=== PATIENT | male | born 1945 | race Caucasian/White ===

== ENCOUNTER 2016-07-11 16:49 | Emergency (ER) | payer MEDICARE ==
[~2016-07-11] VITALS: Ht 172.7 cm; Wt 76.0 kg
[~2016-07-11 16:49] MED LIST: ASPI81TA82 PO; ATEN-102 PO; ATOR10 PO; AZAT50 PO; D31000CA PO; FERR324T4 PO; FOLI400T30 PO; LEVO.075 PO; LISI-357 PO; ONDA1TAB16 PO; PERC5TAB12 PO; PROB500 PO; PROT40TA PO; PYRI60 PO; VIAG100T PO; VITA100020 IM
[2016-07-11 16:51] VITALS: BP 178/81; PULSE 66; RESP 16; TEMP 97.7; O2SAT 95
--- NOTE | 2016-07-11 17:12 | PD ---
HPI Chief Complaint: Abdominal Pain Time Seen by Provider: 17:11 Travel History International Travel<30 days: No Contact w/Intl Traveler<30days: No Traveled to known affect area: No History of Present Illness HPI 70-year-old male with a past medical history of diabetes, myasthenia gravis, CVA , CAD post stents presents to the emergency department for evaluation of diffuse abdominal pain that started around 2 PM this afternoon. He also reports 2 episodes of vomiting. He states that he has a history of chronic abdominal pain that comes and goes. Patient reports the last episode was several weeks ago. He has had colonoscopy and EGD. He currently sees Dr. Sears. He states they have not been able to figure out his source of abdominal pain. He also reports a history of diverticulitis. He denies any diarrhea or constipation. He denies any blood in his stool. Denies any fevers or chills. No chest pain or shortness of breath. Patient does report a history of hernia repair with mesh and appendectomy. PFSH Past Medical History Asthma: No Autoimmune Disease: No Anxiety: No Depression: No Heart Rhythm Problems: No Cancer: No Cardiac Catheterization: Yes Cardiovascular Problems: Yes (3 STENTS) High Cholesterol: Yes Chest Pain: Yes (ischemic heart disease) Congestive Heart Failure: No COPD: No Cerebrovascular Accident: Yes (IN 2010 some left side weakness with acute stroke) Diabetes: Yes Diminished Hearing: No Diverticulitis: Yes Endocrine: Yes (MYASTHENIA GRAVIS) Gastrointestinal Disorders: Yes (reflux) GERD: Yes Gout: Yes Genitourinary: No Hepatitis: No Hiatal Hernia: No Hypertension: Yes Immune Disorder: No Kidney Stones: Yes Musculoskeletal: No Neurologic: Yes (myanthesis gravis in past) Psychiatric: No Reproductive: No Respiratory: No Immunizations Current: Yes Migraines: No Renal Failure: No Seizures: No Sleep Apnea: No Thyroid Disease: Yes Ulcer: No PNEUMOCCOCAL Vaccine (Year): 1 Past Surgical History Abdominal Surgery: Yes (hernia repair) Cardiac Surgery: Yes (stents x2) Coronary Stent: Yes (MAR 2012) Ear Surgery: No Endocrine Surgery: No Eye Surgery: Yes (bilat. cataracts with lens implants) Genitourinary Surgery: No Gynecologic Surgery: No Oral Surgery: No Pacemaker: No Thoracic Surgery: No Other Surgery: Yes ([facility] 08/2013) Social History Alcohol Use: No Tobacco Use: No Substance Use: No Allergies-Medications (Allergen,Severity, Reaction): Coded Allergies: Aggrenox (Verified Allergy, Severe, Hives, 07/11/16) Ondansetron (Verified Allergy, Severe, DIARRHEA, 07/11/16) Pravastatin (Verified Allergy, Severe, Anaphylaxis, 07/11/16) Ranitidine (Verified Allergy, Severe, DIZZINESS, 07/11/16) Metoclopramide (Verified Allergy, Intermediate, DISORIENTED; VERY NERVOUS , 07/11/16) Uncoded Allergies: DETROL (Allergy, Severe, ., 09/18/15) Reported Meds & Prescriptions Reported Meds & Active Scripts Active Reported [fdguard ] 1 Tab PO Q4-6H PRN Pyridostigmine (Pyridostigmine [place]) 60 Mg Tab 90 Mg PO HS Pyridostigmine (Pyridostigmine [place]) 60 Mg Tab 60 Mg PO BID Imuran (Azathioprine) 50 Mg Tab 50 Mg PO BID Hazardous agent: use appropriate precautions for handling and disposal. Probenecid 500 Mg Tab 500 Mg PO Q12HR Nexium 24 HR (Esomeprazole DR) 20 Mg Capdr 40 Mg PO DAILY Lisinopril 5 Mg Tab 5 Mg PO DAILY Synthroid (Levothyroxine Sodium) 75 Mcg Tab 75 Mcg PO DAILY Atenolol 50 Mg Tab 50 Mg PO DAILY Viagra (Sildenafil Citrate) 100 Mg Tab 100 Mg PO DAILY PRN Folic Acid 400 Mcg Tab 400 Mcg PO DAILY Aspirin 81 Mg Chew 81 Mg CHEW DAILY Vitamin D3 (Cholecalciferol) 1,000 Unit Tab 1,000 Units PO DAILY Vitamin B-12 (Cyanocobalamin) 1,000 Mcg Tab 1,000 Mcg PO DAILY Iron (Ferrous Sulfate) 325 Mg Tab 325 Mg PO DAILY Take Review of Systems Except as stated in HPI: all other systems reviewed are Neg Physical Exam Narrative GENERAL: Well-developed well-nourished male patient, afebrile. SKIN: Warm and dry. HEAD: Normocephalic. Atraumatic. EYES: No scleral icterus. No injection or drainage. NECK: Supple, trachea midline. No JVD or lymphadenopathy. CARDIOVASCULAR: Regular rate and rhythm without murmurs, gallops, or rubs. RESPIRATORY: Breath sounds equal bilaterally. No accessory muscle use. Lungs sounds clear to auscultation. GASTROINTESTINAL: Abdomen soft and nondistended. Patient has diffuse tenderness to palpation, worse in the periumbilical and left lower quadrants. MUSCULOSKELETAL: No cyanosis, or edema. BACK: Nontender without obvious deformity. No CVA tenderness. Data Data Last Documented VS Vital Signs Date Time Temp Pulse Resp B/P Pulse Ox O2 Delivery O2 Flow Rate FiO2 07/11/16 19:35 98.0 67 16 151/79 95 Orders Complete Blood Count With Diff (07/11/16 17:07) Comprehensive Metabolic Panel (07/11/16 17:07) Lipase (07/11/16 17:07) Urinalysis - C+S If Indicated (07/11/16 17:07) Iv Access Insert/Monitor (07/11/16 17:07) Ecg Monitoring (07/11/16 17:07) Oximetry (07/11/16 17:07) Sodium Chloride 0.9% Flush (Ns Flush) (07/11/16 17:15) Electrocardiogram (07/11/16 17:07) Promethazine Inj (Phenergan Inj) (07/11/16 17:15) Ct Abd/Pel W Iv Contrast(Rout) (07/11/16 ) Morphine Inj (Morphine Inj) (07/11/16 17:15) Sodium Chlor 0.9% 1000 Ml Inj (Ns 1000 M (07/11/16 17:30) Iohexol 350 Inj (Omnipaque 350 Inj) (07/11/16 18:42) Labs Laboratory Tests Test 07/11/16 17:15 White Blood Count 10.9 TH/MM3 Red Blood Count 4.91 MIL/MM3 Hemoglobin 15.6 GM/DL Hematocrit 45.4 % Mean Corpuscular Volume 92.6 FL Mean Corpuscular Hemoglobin 31.9 PG Mean Corpuscular Hemoglobin 34.5 % Concent Red Cell Distribution Width 13.3 % Platelet Count 202 TH/MM3 Mean Platelet Volume 7.8 FL Neutrophils (%) (Auto) 85.0 % Lymphocytes (%) (Auto) 6.3 % Monocytes (%) (Auto) 7.2 % Eosinophils (%) (Auto) 1.1 % Basophils (%) (Auto) 0.4 % Neutrophils # (Auto) 9.3 TH/MM3 Lymphocytes # (Auto) 0.7 TH/MM3 Monocytes # (Auto) 0.8 TH/MM3 Eosinophils # (Auto) 0.1 TH/MM3 Basophils # (Auto) 0.0 TH/MM3 CBC Comment DIFF FINAL Differential Comment Urine Color YELLOW Urine Turbidity CLEAR Urine pH 5.5 Urine Specific [place] 1.027 Urine Protein TRACE mg/dL Urine Glucose (UA) NEG mg/dL Urine Ketones NEG mg/dL Urine Occult Blood SMALL Urine Nitrite NEG Urine Bilirubin NEG Urine Urobilinogen LESS THAN 2.0 MG/DL Urine Leukocyte Esterase NEG Urine RBC 7 /hpf Urine WBC 2 /hpf Urine Squamous Epithelial <1 /hpf Cells Urine Mucus MOD /lpf Microscopic Urinalysis Comment CULT NOT INDICATED Sodium Level 139 MEQ/L Potassium Level 3.7 MEQ/L Chloride Level 105 MEQ/L Carbon Dioxide Level 26.5 MEQ/L Anion Gap 8 MEQ/L Blood Urea Nitrogen 18 MG/DL Creatinine 1.00 MG/DL Estimat Glomerular Filtration 74 ML/MIN Rate Random Glucose 101 MG/DL Calcium Level 8.5 MG/DL Total Bilirubin 1.1 MG/DL Aspartate Amino Transf 15 U/L (AST/SGOT) Alanine Aminotransferase 21 U/L (ALT/SGPT) Alkaline Phosphatase 61 U/L Total Protein 6.5 GM/DL Albumin 3.7 GM/DL Lipase 132 U/L [facility] Medical Decision Making Medical Screen Exam Complete: Yes Emergency Medical Condition: Yes Medical Record Reviewed: Yes Interpretation(s) Last Impressions Abdomen/Pelvis CT 07/11/16 0000 Signed Impressions: Service Date/Time: Wednesday, July 11, 2016 18:27 - CONCLUSION: 1. Abnormal mural thickening of the fourth portion of the duodenum and several proximal jejunal loops similar to September 2015 examination. Differential diagnosis again includes infectious or inflammatory etiology as well as infiltrative neoplastic process such as lymphoma. There is some associated trace free fluid in the left paracolic gutter. This would be better evaluated endoscopically. Lm Butler MD Differential Diagnosis Chronic abdominal pain versus diverticulitis versus UTI versus pancreatitis versus colitis Narrative Course 70-year-old male presents to the emergency department treatment which abdominal pain since 2 PM this afternoon. EKG is ordered and pending. CBC, CMP, lipase, UA are ordered and pending. CT the abdomen/pelvis with IV contrast is ordered and pending. Patient is given Phenergan 12.5 mg IM and morphine 4 mg IV for pain and nausea. EKG shows SR, HR 62, no acute ST changes. CBC shows no acute abnormalities. CMP shows no acute abnormality. Lipase is 132. UA shows no acute infection. CT abdomen/pelvis shows 1. Abnormal mural thickening of the fourth portion of the duodenum and several proximal jejunal loops similar to September 2015 examination. Differential diagnosis again includes infectious or inflammatory etiology as well as infiltrative neoplastic process such as lymphoma. There is some associated trace free fluid in the left paracolic gutter. This would be better evaluated endoscopically. Patient sees Dr. Sears and has had recent EGD/colonoscopy. This is chronic in nature. My attending physician, Dr. Dominguez, also evaluated patient and agrees on plan and disposition. The patient was discharged in stable condition with instructions, including return instructions and follow up instructions. Diagnosis Primary Impression: Abdominal pain Qualified Code: R10.84 - Generalized abdominal pain Referrals: Breanna Sears MD call for appointment Patient Instructions: Abdominal Pain (ED), General Instructions Additional Instructions: Take Lortab as directed as needed for pain. Caution this can make you drowsy so do not drive after taking. Follow-up with Dr. Sears. Return to the emergency department for any acute worsening of symptoms. Med/Other Pt SpecificInfo: Prescription(s) given Scripts Hydrocodone-Acetaminophen (Lortab)5-325 Mg Tab1 Tab PO Q6H PRN (PAIN) #12 TAB Ref 0 Prov:Jenny Moser DO 07/11/16 Disposition: 01 DISCHARGE HOME Condition: Stable Jeniffer Forrester SAKSHI Jul 11, 2016 17:12
[2016-07-11] MEDS ORDERED: SODIUM CHLORIDE 0.9% FLUSH 5 ML FLUSH IVF PRN (17:15)
[2016-07-11] MEDS ORDERED: PROMETHAZINE INJ 25 MG/ML VIAL IM ONE (17:15)
[2016-07-11] MEDS ORDERED: MORPHINE SULFATE 4 MG/ML INJ IV PUSH ONE (17:15)
[2016-07-11] MEDS ORDERED: SODIUM CHLOR 0.9% 1000 ML INJ 1,000 ML IV ONE (17:30)
[2016-07-11 17:39] LABS: AUTOMATED NEUTROPHIL # 9.3 TH/MM3 (1.8-7.7); BASOPHIL % 0.4 % (0.0-2.0); EOSINOPHIL # 0.1 TH/MM3 (0-0.4); EOSINOPHIL % 1.1 % (0.0-4.0); HEMATOCRIT 45.4 % (39.0-51.0); HEMO FLAGS DIFF FINAL; LYMPH % 6.3 % (9.0-44.0); LYMPHOCYTE # 0.7 TH/MM3 (1.0-4.8); MEAN CELL VOLUME 92.6 FL (80.0-100.0); MEAN CORPUSCULAR HEMOGLOBIN 31.9 PG (27.0-34.0); MEAN CORPUSCULAR HGB CONC 34.5 % (32.0-36.0); MONO % 7.2 % (0.0-8.0); PLATELET COUNT 202 TH/MM3 (150-450); RED BLOOD COUNT 4.91 MIL/MM3 (4.50-5.90); RED CELL DISTRIBUTION WIDTH 13.3 % (11.6-17.2); WHITE BLOOD COUNT 10.9 TH/MM3 (4.0-11.0)
[2016-07-11 17:42] LABS: BLOOD, URINE SMALL (NEG); COMMENT (UR) CULT NOT INDICATED; CULTURE IF INDICATED CULT NOT INDICATED; GLUCOSE,URINE NEG (NEG); KETONE, URINE NEG (NEG); MUCUS URINE MOD /lpf (OCC); NITRITE,URINE NEG (NEG); PH, URINE 5.5 (5.0-8.5); SQUAMOUS EPITHELIAL CELL URINE <1 /hpf (0-5); URINE COLOR YELLOW (YELLW/STRAW)
[2016-07-11] MEDS ORDERED: IMUR50TA PO (17:43)
[2016-07-11] MEDS ORDERED: ATEN50TA PO (17:43)
[2016-07-11] MEDS ORDERED: FOLI400T PO (17:43)
[2016-07-11] MEDS ORDERED: VIAG100T PO (17:43)
[2016-07-11] MEDS ORDERED: [UNRECOGNIZED DRUG - OTHER] PO (17:43)
[2016-07-11] MEDS ORDERED: LEVO.075 PO (17:43)
[2016-07-11] MEDS ORDERED: VITA100018 PO (17:43)
[2016-07-11] MEDS ORDERED: FERR1TAB36 PO (17:43)
[2016-07-11] MEDS ORDERED: ASPI81CH CHEW (17:43)
[2016-07-11] MEDS ORDERED: ESOM1CAP6 PO (17:43)
[2016-07-11] MEDS ORDERED: PROB500T8 PO (17:43)
[2016-07-11] MEDS ORDERED: VITA10002 SQ (17:43)
[2016-07-11] MEDS ORDERED: PYRI60 PO ×2 (17:43)
[2016-07-11] MEDS ORDERED: LISI-519 PO (17:43)
[2016-07-11 18:10] LABS: ANION GAP 8 MEQ/L (5-15); AST (GOT) 15 U/L (15-37); BICARBONATE 26.5 MEQ/L (21.0-32.0); BLOOD UREA NITROGEN 18 MG/DL (7-18); CHLORIDE 105 MEQ/L (98-107); GLOMERULAR FILTRATION RATE 74 ML/MIN (>89); POTASSIUM 3.7 MEQ/L (3.5-5.1); SODIUM (NA) 139 MEQ/L (136-145)
[2016-07-11 18:13] LABS: ALKALINE PHOSPHATASE 61 U/L (45-117); ALT (GPT) 21 U/L (12-78); TOTAL BILIRUBIN ADULT 1.1 MG/DL (0.2-1.0)
[2016-07-11] MEDS ORDERED: IOHEXOL 350 MG/ML 10 ML VIAL (for RAD DIAG) IV ONE (18:42)
--- NOTE | 2016-07-11 19:24 | RADRPT ---
EXAM DATE/TIME: 07/11/2016 18:27 [place] COMPARISON: CT ABDOMEN & PELVIS W CONTRAST, September 18, 2015, 10:35. INDICATIONS : Abdominal pain and vomiting. IV CONTRAST: 96 cc Omnipaque 350 (iohexol) IV ORAL CONTRAST: No oral contrast ingested. RADIATION DOSE: 9.96 CTDIvol (mGy) MEDICAL HISTORY : Diverticulitis. Gastroesophageal reflux disease. Diabetes mellitus type 2.Myasthenia Gravis, stroke, hypertension. SURGICAL HISTORY : Coronary artery stent. Inguinal hernia repair. ENCOUNTER: Initial ACUITY: 1 day PAIN SCALE: 5/10 LOCATION: Bilateral upper quadrant TECHNIQUE: Volumetric scanning of the abdomen and pelvis was performed. Using automated exposure control and ad justment of the mA and/or kV according to patient size, radiation dose was kept as low as reasonably achievable to obtain optimal diagnostic quality images. FINDINGS: Comparison is September 2015. Again seen is abnormal thickening of the fourth portion of the duodenum and proximal jejunum with multiple loops involved. This is very similar to the appearance from September 6. Differential diagnosis remains the same. Infectious and inflammatory causes could give this appear ance. Lymphomatous infiltration is also a possibility. There is a small amount of surrounding fluid a nd some stranding of the surrounding fat. Trace fluid in left paracolic gutter. This would be better evaluated endoscopically. Lung bases clear except for minimal scarring. No acute findings in the lumbar, spleen, adrenals, kidn eys or pancreas. Multiple surgical clips present in the pelvis. CONCLUSION: 1. Abnormal mural thickening of the fourth portion of the duodenum and several proximal jejunal loops similar to September 2015 examination. Differential diagnosis again includes infectious or inflammatory etiology as well as infiltrative neoplastic process such as lymphoma. There is some associated trace free fluid in the left paracolic gutter. This would be better evaluated endoscopically. Lm Butler MD on July 11, 2016 at 19:15 Board Certified Radiologist. This report was verified electronically.
[2016-07-11 19:35] VITALS: BP 151/79; PULSE 67; RESP 16; TEMP 98; O2SAT 95
[2016-07-11] MEDS ORDERED: HYDR-3533 PO ×2 (19:49→19:53)
--- NOTE | 2016-07-11 19:55 | PD ---
Physical Exam Narrative GENERAL: Well-nourished, well-developed patient. SKIN: Warm and dry. HEAD: Normocephalic and atraumatic. EYES: No injection or drainage. ENT: No nasal drainage noted. NECK: Supple, trachea midline. CARDIOVASCULAR: Regular rate and rhythm RESPIRATORY: no increased effort. No accessory muscle use NEUROLOGICAL: Awake and alert. Motor and sensory grossly within normal limits. Normal speech. Data Data Last Documented VS Vital Signs Date Time Temp Pulse Resp B/P Pulse Ox O2 Delivery O2 Flow Rate FiO2 07/11/16 19:35 98.0 67 16 151/79 95 Orders Complete Blood Count With Diff (07/11/16 17:07) Comprehensive Metabolic Panel (07/11/16 17:07) Lipase (07/11/16 17:07) Urinalysis - C+S If Indicated (07/11/16 17:07) Iv Access Insert/Monitor (07/11/16 17:07) Ecg Monitoring (07/11/16 17:07) Oximetry (07/11/16 17:07) Sodium Chloride 0.9% Flush (Ns Flush) (07/11/16 17:15) Electrocardiogram (07/11/16 17:07) Promethazine Inj (Phenergan Inj) (07/11/16 17:15) Ct Abd/Pel W Iv Contrast(Rout) (07/11/16 ) Morphine Inj (Morphine Inj) (07/11/16 17:15) Sodium Chlor 0.9% 1000 Ml Inj (Ns 1000 M (07/11/16 17:30) Iohexol 350 Inj (Omnipaque 350 Inj) (07/11/16 18:42) Labs Laboratory Tests Test 07/11/16 17:15 White Blood Count 10.9 TH/MM3 Red Blood Count 4.91 MIL/MM3 Hemoglobin 15.6 GM/DL Hematocrit 45.4 % Mean Corpuscular Volume 92.6 FL Mean Corpuscular Hemoglobin 31.9 PG Mean Corpuscular Hemoglobin 34.5 % Concent Red Cell Distribution Width 13.3 % Platelet Count 202 TH/MM3 Mean Platelet Volume 7.8 FL Neutrophils (%) (Auto) 85.0 % Lymphocytes (%) (Auto) 6.3 % Monocytes (%) (Auto) 7.2 % Eosinophils (%) (Auto) 1.1 % Basophils (%) (Auto) 0.4 % Neutrophils # (Auto) 9.3 TH/MM3 Lymphocytes # (Auto) 0.7 TH/MM3 Monocytes # (Auto) 0.8 TH/MM3 Eosinophils # (Auto) 0.1 TH/MM3 Basophils # (Auto) 0.0 TH/MM3 CBC Comment DIFF FINAL Differential Comment Urine Color YELLOW Urine Turbidity CLEAR Urine pH 5.5 Urine Specific [place] 1.027 Urine Protein TRACE mg/dL Urine Glucose (UA) NEG mg/dL Urine Ketones NEG mg/dL Urine Occult Blood SMALL Urine Nitrite NEG Urine Bilirubin NEG Urine Urobilinogen LESS THAN 2.0 MG/DL Urine Leukocyte Esterase NEG Urine RBC 7 /hpf Urine WBC 2 /hpf Urine Squamous Epithelial <1 /hpf Cells Urine Mucus MOD /lpf Microscopic Urinalysis Comment CULT NOT INDICATED Sodium Level 139 MEQ/L Potassium Level 3.7 MEQ/L Chloride Level 105 MEQ/L Carbon Dioxide Level 26.5 MEQ/L Anion Gap 8 MEQ/L Blood Urea Nitrogen 18 MG/DL Creatinine 1.00 MG/DL Estimat Glomerular Filtration 74 ML/MIN Rate Random Glucose 101 MG/DL Calcium Level 8.5 MG/DL Total Bilirubin 1.1 MG/DL Aspartate Amino Transf 15 U/L (AST/SGOT) Alanine Aminotransferase 21 U/L (ALT/SGPT) Alkaline Phosphatase 61 U/L Total Protein 6.5 GM/DL Albumin 3.7 GM/DL Lipase 132 U/L [facility] Supervised Visit with JESUS: Yes Interpretation(s) Last 24 hours Impressions Abdomen/Pelvis CT 07/11/16 0000 Signed Impressions: Service Date/Time: Monday, July 11, 2016 18:27 - CONCLUSION: 1. Abnormal mural thickening of the fourth portion of the duodenum and several proximal jejunal loops similar to September 2015 examination. Differential diagnosis again includes infectious or inflammatory etiology as well as infiltrative neoplastic process such as lymphoma. There is some associated trace free fluid in the left paracolic gutter. This would be better evaluated endoscopically. Lm Butler MD Patient without white count or fever Follow as outpatient Narrative Course I, Dr. dominguez, have reviewed the advance practice practitioner's documentation and am in agreement, met with the patient face to face, made the diagnosis, and the medical decision making was done by me. *My assessment and Findings: A 70-year-old male complains of a history of abdominal pain presents to the emergency department. Workup was ordered prior to my arrival. CT resulted and showed area that was similar to September 2015. Patient states he had a scope that was normal other than gastroparesis when he followed with Dr. sears as an outpatient.Patient denies any new complaints and states that they are feeling better. Patient happy with care, all questions answered. Patient knows that follow up is incumbent on them and to return to the emergency room immediately if new or worsening symptoms develop. Patient given strict return precautions, vitals reviewed and are normal, agrees to further workup as an outpatient. at bedside Diagnosis Primary Impression: Abdominal pain Qualified Code: R10.84 - Generalized abdominal pain Referrals: Breanna Sears MD call for appointment On Wednesday Patient Instructions: General Instructions, Abdominal Pain (ED) Additional Instruction: Take Lortab as directed as needed for severe pain. Caution this can make you drowsy so do not drive after taking. Follow-up with Dr. Sears. Return to the emergency department for any acute worsening of symptoms. Med/Other Pt SpecificInfo: Prescription(s) given Scripts Hydrocodone-Acetaminophen (Lortab)5-325 Mg Tab1 Tab PO Q6H PRN (PAIN) #12 TAB Ref 0 Prov:Katina Dominguez MD 07/11/16 Disposition: 01 DISCHARGE HOME Condition: Stable Katina Dominguez MD Jul 11, 2016 19:55
--- NOTE | 2016-07-12 12:19 | EKG ---
Date Performed: 07/11/2016 Time Performed: 17:21:16 PTAGE: 70 years EKG: Sinus rhythm POSSIBLE RIGHT VENTRICULAR CONDUCTION DELAY Since previous tracing, no significant change noted BORD TYRONE ECG PREVIOUS TRACING : 06/05/2014 19.30 DOCTOR: Terra Ahuja Interpretating Date/Time 07/12/2016 12:17:46
== END 2016-07-11 20:21 | disposition home or self-care (01) ==
LOC: NEPC 16:49
DX: R10.84 Generalized abdominal pain (principal); G89.29 Other chronic pain; G70.00 Myasthenia gravis without (acute) exacerbation; E11.9 Type 2 diabetes mellitus without complications; I10 Essential (primary) hypertension
CPT/HCPCS: 74177; 80053; 81001; 83690; 85025; 93005; 96361; 96372; 96374; 99284; J2270; J2550; J7030; Q9967

== ENCOUNTER 2016-09-29 14:30 | Observation (INO) | payer MEDICARE ==
[~2016-09-29] VITALS: Ht 172.7 cm; Wt 73.5 kg
[~2016-09-29 14:30] MED LIST changes: +ASPI81CH CHEW; -ASPI81TA82 PO; -ATEN-102 PO; +ATEN50TA PO; -ATOR10 PO; -AZAT50 PO; -D31000CA PO; +ESOM1CAP6 PO; +FERR1TAB36 PO; -FERR324T4 PO; +FOLI400T PO; -FOLI400T30 PO; +HYDR-3533 PO; +IMUR50TA PO; -LISI-357 PO; +LISI-519 PO; -ONDA1TAB16 PO; -PERC5TAB12 PO; -PROB500 PO; +PROB500T8 PO; -PROT40TA PO; +VITA100018 PO; +VITA10002 SQ; -VITA100020 IM; +[UNRECOGNIZED DRUG - OTHER] PO
[2016-09-29 14:32] VITALS: BP 114/66; PULSE 69; RESP 17; TEMP 97.6; O2SAT 98
--- NOTE | 2016-09-29 14:37 | PD ---
Physical Exam Date Seen by Provider: Sep 29, 2016 Time Seen by Provider: 14:32 Narrative Pt is a 71 y/o male presenting to the ED for evaluation of Lower abdominal/ bilateral flank pain Since Wednesday night. Pt reports nausea, vomiting and diarrhea. Pt has not vomited since Wednesday. Today he reports reflux. Pt denies any bloody emesis, his stools are dark but he is on iron pills. Pt reports his pain is 9/10. Pt has a history of diverticulosis and is followed by GI. Dr. Breanna Sears. Pt appears well, in no acute distress. He has had similar pains in the past. Data Data Last Documented VS Vital Signs Date Time Temp Pulse Resp B/P Pulse Ox O2 Delivery O2 Flow Rate FiO2 09/29/16 14:32 97.6 69 17 114/66 98 MDM Supervised Visit with JESUS: Milagros Casper Sep 29, 2016 14:37
[2016-09-29] MEDS ORDERED: SODIUM CHLOR 0.9% 1000 ML INJ 1,000 ML IV SCH (14:46)
--- NOTE | 2016-09-29 14:54 | PD ---
HPI Chief Complaint: Abdominal Pain Time Seen by Provider: 14:41 Travel History International Travel<30 days: No Contact w/Intl Traveler<30days: No Traveled to known affect area: No History of Present Illness HPI This is a 71-year-old male who presents to the emergency department with 2 days of abdominal pain described as constant, severe, worse on the left side, feeling similar to when he said diverticulitis in the past. He took ciprofloxacin and Flagyl which he has at home this morning but his symptoms of only worsened. He's vomited several times. He's been feverish. He has had a hernia repair in the past but no other abdominal surgeries. He has had some loose stools. He is currently being worked up by his primary care physician for malignancy and has a PET scan ordered for later this week. PFSH Past Medical History Asthma: No Autoimmune Disease: No Anxiety: No Depression: No Heart Rhythm Problems: No Cancer: No Cardiac Catheterization: Yes Cardiovascular Problems: Yes (3 STENTS) High Cholesterol: Yes Chest Pain: Yes (ischemic heart disease) Congestive Heart Failure: No COPD: No Cerebrovascular Accident: Yes (small) Diabetes: Yes Patient Takes Glucophage: No Diminished Hearing: No Diverticulitis: Yes Endocrine: Yes (MYASTHENIA GRAVIS) Gastrointestinal Disorders: Yes (reflux,diverticulosis) GERD: Yes Gout: Yes Genitourinary: No Hepatitis: No Hiatal Hernia: No Hypertension: Yes Immune Disorder: No Kidney Stones: Yes Medical other: Yes (GERD, MYASTHENIA GRAVIS) Musculoskeletal: No Neurologic: Yes (myanthesis gravis in past) Psychiatric: No Reproductive: No Respiratory: No Immunizations Current: Yes Migraines: No Renal Failure: No Seizures: No Sleep Apnea: No Thyroid Disease: Yes Ulcer: No Influenza Vaccination: Yes PNEUMOCCOCAL Vaccine (Year): 1 Past Surgical History Abdominal Surgery: Yes (hernia repair) Cardiac Surgery: Yes (stents x2) Coronary Stent: Yes (MAR 2012) Ear Surgery: No Endocrine Surgery: No Eye Surgery: Yes (bilat. cataracts with lens implants) Genitourinary Surgery: No Gynecologic Surgery: No Oral Surgery: No Pacemaker: No Thoracic Surgery: No Other Surgery: Yes (turp 08/2013) Social History Alcohol Use: No Tobacco Use: No Substance Use: No Allergies-Medications (Allergen,Severity, Reaction): Coded Allergies: Aggrenox (Verified Allergy, Severe, Hives, 4/25/17) Ondansetron (Verified Allergy, Severe, DIARRHEA, 09/29/16) Pravastatin (Verified Allergy, Severe, Anaphylaxis, 09/29/16) Ranitidine (Verified Allergy, Severe, DIZZINESS, 09/29/16) Metoclopramide (Verified Allergy, Intermediate, DISORIENTED; VERY NERVOUS , 09/29/16) Uncoded Allergies: DETROL (Allergy, Severe, ., 09/18/15) Reported Meds & Prescriptions Reported Meds & Active Scripts Active Lortab (Hydrocodone-Acetaminophen) 5-325 Mg Tab 1 Tab PO Q6H PRN Reported Ciprofloxacin (Ciprofloxacin HCl) 500 Mg Tab 500 Mg PO BID Metronidazole 500 Mg Tab 500 Mg PO BID [fdguard ] 1 Tab PO Q4-6H PRN Pyridostigmine (Pyridostigmine [place]) 60 Mg Tab 90 Mg PO HS Pyridostigmine (Pyridostigmine [place]) 60 Mg Tab 60 Mg PO BID Imuran (Azathioprine) 50 Mg Tab 50 Mg PO BID Hazardous agent: use appropriate precautions for handling and disposal. Probenecid 500 Mg Tab 500 Mg PO Q12HR Nexium 24 HR (Esomeprazole DR) 20 Mg Capdr 40 Mg PO BID Lisinopril 5 Mg Tab 5 Mg PO DAILY Synthroid (Levothyroxine Sodium) 75 Mcg Tab 75 Mcg PO DAILY Atenolol 50 Mg Tab 50 Mg PO DAILY Folic Acid 400 Mcg Tab 400 Mcg PO DAILY Aspirin 81 Mg Chew 81 Mg CHEW DAILY Vitamin D3 (Cholecalciferol) 1,000 Unit Tab 1,000 Units PO BID Vitamin B-12 (Cyanocobalamin) 1,000 Mcg Tab 1,000 Mcg SQ MONTHLY Iron (Ferrous Sulfate) 325 Mg Tab 325 Mg PO DAILY Take Review of Systems Except as stated in HPI: all other systems reviewed are Neg Physical Exam Narrative GENERAL:Well appearing, no acute distress SKIN: Focused skin assessment warm and dry. HEAD: Atraumatic. Normocephalic. EYES: Pupils equal and round. No injection or drainage. ENT: Moist mucous membranes NECK: Trachea midline. CARDIOVASCULAR: Regular rate and rhythm. No murmur appreciated. RESPIRATORY: Clear to auscultation. Breath sounds equal bilaterally. GASTROINTESTINAL: Abdomen soft, diffusely tender to palpation, worse in the right upper quadrant and epigastrium MUSCULOSKELETAL: No obvious deformities. NEUROLOGICAL: Awake and alert. No obvious cranial nerve deficits. Moving all extremities. PSYCHIATRIC: Appropriate mood and affect; insight and judgment normal. Data Data Last Documented VS Vital Signs Date Time Temp Pulse Resp B/P Pulse Ox O2 Delivery O2 Flow Rate FiO2 09/29/16 14:49 Room Air 09/29/16 14:32 97.6 69 17 114/66 98 Orders Complete Blood Count With Diff (09/29/16 14:46) Comprehensive Metabolic Panel (09/29/16 14:46) Lipase (09/29/16 14:46) Urinalysis - C+S If Indicated (09/29/16 14:46) Ct Abd/Pel W Iv Contrast(Rout) (09/29/16 14:46) Iv Access Insert/Monitor (09/29/16 14:46) Ecg Monitoring (09/29/16 14:46) Oximetry (09/29/16 14:46) Morphine Inj (Morphine Inj) (09/29/16 15:00) Ondansetron Inj (Zofran Inj) (09/29/16 15:00) Sodium Chlor 0.9% 1000 Ml Inj (Ns 1000 M (09/29/16 14:46) Sodium Chloride 0.9% Flush (Ns Flush) (09/29/16 15:00) Iohexol 350 Inj (Omnipaque 350 Inj) (09/29/16 16:40) Ciprofloxacin 400 Mg Premix (Cipro 400 M (09/29/16 17:00) Metronidazole 500 Mg Inj (Flagyl 500 Mg (09/29/16 17:00) Admit Order (Ed Use Only) (09/29/16 17:12) Labs Laboratory Tests Test 09/29/16 15:01 White Blood Count 14.9 TH/MM3 Red Blood Count 5.14 MIL/MM3 Hemoglobin 16.1 GM/DL Hematocrit 48.2 % Mean Corpuscular Volume 93.8 FL Mean Corpuscular Hemoglobin 31.3 PG Mean Corpuscular Hemoglobin 33.3 % Concent Red Cell Distribution Width 13.5 % Platelet Count 201 TH/MM3 Mean Platelet Volume 7.8 FL Neutrophils (%) (Auto) 88.8 % Lymphocytes (%) (Auto) 3.4 % Monocytes (%) (Auto) 7.4 % Eosinophils (%) (Auto) 0.1 % Basophils (%) (Auto) 0.3 % Neutrophils # (Auto) 13.2 TH/MM3 Lymphocytes # (Auto) 0.5 TH/MM3 Monocytes # (Auto) 1.1 TH/MM3 Eosinophils # (Auto) 0.0 TH/MM3 Basophils # (Auto) 0.0 TH/MM3 CBC Comment AUTO DIFF Differential Comment AUTO DIFF CONFIRMED Platelet Estimate NORMAL Platelet Morphology Comment NORMAL Red Cell Morphology Comment NORMAL Urine Color DARK-YELLOW Urine Turbidity HAZY Urine pH 5.5 Urine Specific [place] 1.035 Urine Protein 30 mg/dL Urine Glucose (UA) TRACE mg/dL Urine Ketones 10 mg/dL Urine Occult Blood TRACE Urine Nitrite NEG Urine Bilirubin NEG Urine Urobilinogen 2.0 MG/DL Urine Leukocyte Esterase TRACE Urine RBC 5 /hpf Urine WBC 6 /hpf Urine Squamous Epithelial 1 /hpf Cells Urine Mucus MANY /lpf Microscopic Urinalysis Comment CULT NOT INDICATED Sodium Level 137 MEQ/L Potassium Level 4.1 MEQ/L Chloride Level 105 MEQ/L Carbon Dioxide Level 26.5 MEQ/L Anion Gap 6 MEQ/L Blood Urea Nitrogen 21 MG/DL Creatinine 1.22 MG/DL Estimat Glomerular Filtration 58 ML/MIN Rate Random Glucose 116 MG/DL Calcium Level 9.2 MG/DL Total Bilirubin 1.7 MG/DL Aspartate Amino Transf 14 U/L (AST/SGOT) Alanine Aminotransferase 14 U/L (ALT/SGPT) Alkaline Phosphatase 56 U/L Total Protein 6.7 GM/DL Albumin 3.8 GM/DL Lipase 142 U/L [facility] Medical Decision Making Medical Screen Exam Complete: Yes Emergency Medical Condition: Yes Interpretation(s) Afebrile, no tachycardia, normotensive Leukocytosis 88% neutrophils Electrolytes are reassuring Lipase is 142 Urinalysis: Some white blood cells Last 24 hours Impressions Abdomen/Pelvis CT 09/29/16 1446 Signed Impressions: Service Date/Time: Thursday, September 29, 2016 16:33 - CONCLUSION: 1. Abnormal bowel gas pattern with multiple loops of abnormal small bowel in the midabdomen with circumferential wall thickening and mild surrounding inflammatory change. Findings are of concern for infectious and inflammatory conditions. 2. Mild diverticulosis. 3. Small amount of ascitic fluid. 4. 2 small nonobstructing left renal calculi. Gene Ruiz MD Differential Diagnosis Diverticulitis, colitis, enteritis, cholecystitis, cholelithiasis Narrative Course This is a 71-year-old male who presents to the emergency department with abdominal pain and vomiting. He was placed on a monitor and an IV was established. He was found to have a leukocytosis of 14. CT abdomen and pelvis demonstrates thickening and inflammation of the small bowel. A monitor with the etiology of this is but given his elevated white blood cell count I covered him with ciprofloxacin and Flagyl. Patient will be admitted for enteritis. He did have this finding on a CT scan in July and at that time there was a concern for possible malignancy. His primary care physician has ordered a PET scan but that's not been performed yet. Physician Communication Physician Communication Discussed with Dr. Martinez Diagnosis Primary Impression: Enteritis Admitting Information Admitting Physician Requests: Admit Purvi Tavarez MD Sep 29, 2016 14:54
[2016-09-29] MEDS ORDERED: SODIUM CHLORIDE 0.9% FLUSH 10 ML FLUSH IV FLUSH PRN ×2 (15:00→18:30)
[2016-09-29] MEDS ORDERED: MORPHINE SULFATE 4 MG/ML INJ IV PUSH ONE (15:00)
[2016-09-29] MEDS ORDERED: ONDANSETRON HCL 4 MG/2 ML VIAL IVP ONE (15:00)
[2016-09-29] MEDS ORDERED: CIPR500T2 PO (15:06)
[2016-09-29] MEDS ORDERED: METR500T10 PO (15:06)
[2016-09-29 15:33] LABS: AUTOMATED NEUTROPHIL # 13.2 TH/MM3 (1.8-7.7); BASOPHIL % 0.3 % (0.0-2.0); EOSINOPHIL % 0.1 % (0.0-4.0); HEMATOCRIT 48.2 % (39.0-51.0); LYMPH % 3.4 % (9.0-44.0); LYMPHOCYTE # 0.5 TH/MM3 (1.0-4.8); MEAN CELL VOLUME 93.8 FL (80.0-100.0); MEAN CORPUSCULAR HEMOGLOBIN 31.3 PG (27.0-34.0); MEAN CORPUSCULAR HGB CONC 33.3 % (32.0-36.0); MONO % 7.4 % (0.0-8.0); NEUT % 88.8 % (16.0-70.0); PLATELET COUNT 201 TH/MM3 (150-450); RED BLOOD COUNT 5.14 MIL/MM3 (4.50-5.90); RED CELL DISTRIBUTION WIDTH 13.5 % (11.6-17.2); WHITE BLOOD COUNT 14.9 TH/MM3 (4.0-11.0)
[2016-09-29 15:39] LABS: HEMO FLAGS AUTO DIFF
[2016-09-29 15:41] LABS: BLOOD, URINE TRACE (NEG); COMMENT (UR) CULT NOT INDICATED; CULTURE IF INDICATED CULT NOT INDICATED; GLUCOSE,URINE TRACE mg/dL (NEG); KETONE, URINE 10 mg/dL (NEG); MUCUS URINE MANY /lpf (OCC); NITRITE,URINE NEG (NEG); PH, URINE 5.5 (5.0-8.5); SQUAMOUS EPITHELIAL CELL URINE 1 /hpf (0-5); URINE COLOR DARK-YELLOW (YELLW/STRAW)
[2016-09-29 15:51] LABS: ANION GAP 6 MEQ/L (5-15); AST (GOT) 14 U/L (15-37); BICARBONATE 26.5 MEQ/L (21.0-32.0); BLOOD UREA NITROGEN 21 MG/DL (7-18); CHLORIDE 105 MEQ/L (98-107); GLOMERULAR FILTRATION RATE 58 ML/MIN (>89); POTASSIUM 4.1 MEQ/L (3.5-5.1); SODIUM (NA) 137 MEQ/L (136-145)
[2016-09-29 15:58] LABS: ALKALINE PHOSPHATASE 56 U/L (45-117); ALT (GPT) 14 U/L (12-78); TOTAL BILIRUBIN ADULT 1.7 MG/DL (0.2-1.0)
[2016-09-29 16:12] LABS: PLATELET ESTIMATE SMEAR NORMAL (NORMAL); PLATELET MORPHOLOGY NORMAL (NORMAL); SCAN/DIFF AUTO DIFF CONFIRMED
[2016-09-29] MEDS ORDERED: IOHEXOL 350 MG/ML 10 ML VIAL (for RAD DIAG) IV ONE (16:40)
--- NOTE | 2016-09-29 16:54 | RADRPT ---
EXAM DATE/TIME: 09/29/2016 16:33 [facility] COMPARISON: CT ABDOMEN & PELVIS W CONTRAST, July 11, 2016, 18:27. INDICATIONS : Upper abdomen pain for three days. IV CONTRAST: 100 cc Omnipaque 350 (iohexol) IV ORAL CONTRAST: No oral contrast ingested. RADIATION DOSE: 9.92 CTDIvol (mGy) MEDICAL HISTORY : Cardiovascular disease. Hypertension. Diabetes mellitus type 1.GERD, CVA, Myasterias gravis. SURGICAL HISTORY : None. ENCOUNTER: Initial ACUITY: 3 days PAIN SCALE: 8/10 LOCATION: Bilateral upper quadrant TECHNIQUE: Volumetric scanning of the abdomen and pelvis was performed. Using automated exposure control and ad justment of the mA and/or kV according to patient size, radiation dose was kept as low as reasonably achievable to obtain optimal diagnostic quality images. FINDINGS: LOWER LUNGS: There is mild atelectasis and/or scarring at the right lung base. LIVER: Homogeneous density without lesion. There is no dilation of the biliary tree. No calcified gallston es. There is a small amount of surrounding ascitic fluid. Gallbladder is unremarkable. SPLEEN: Normal size without lesion. There is a small amount of surrounding ascitic fluid. PANCREAS: Within normal limits. KIDNEYS: Normal in size and shape. There is no mass or hydronephrosis. There are 2 small nonobstructing left renal calculi. ADRENAL GLANDS: Within normal limits. VASCULAR: There is no aortic aneurysm. BOWEL/MESENTERY: There are postsurgical changes in the pelvis with multiple diverticuli. There are multiple loops of a bnormal small bowel in the mid and lower abdomen with circumferential wall thickening and mild strand ing in the mesentery consistent with inflammatory change. There is no free air. ABDOMINAL WALL: Within normal limits. RETROPERITONEUM: There is no lymphadenopathy. BLADDER: No wall thickening or mass. REPRODUCTIVE: Within normal limits. INGUINAL: There is no lymphadenopathy or hernia. MUSCULOSKELETAL: Within normal limits for patient age. CONCLUSION: 1. Abnormal bowel gas pattern with multiple loops of abnormal small bowel in the midabdomen with circ umferential wall thickening and mild surrounding inflammatory change. Findings are of concern for inf ectious and inflammatory conditions. 2. Mild diverticulosis. 3. Small amount of ascitic fluid. 4. 2 small nonobstructing left renal calculi. Gene Ruiz MD on September 29, 2016 at 16:47 Board Certified Radiologist. This report was verified electronically.
[2016-09-29] MEDS ORDERED: metroNIDAZOLE 500 MG INJ 100 ML IV ONE (17:00)
[2016-09-29] MEDS ORDERED: CIPROFLOXACIN 400 MG PREMIX 200 ML IV ONE (17:00)
[2016-09-29 17:49] VITALS: BP 136/69; PULSE 71; O2SAT 95
[2016-09-29] MEDS ORDERED: ACETAMINOPHEN/HYDROcodone 325 MG/5 MG TAB PO PRN (18:15)
[2016-09-29] MEDS ORDERED: ONDANSETRON HCL 4 MG/2 ML VIAL IVP PRN (18:30)
[2016-09-29] MEDS ORDERED: NALOXONE HCL 0.4 MG/ML AMP IV PRN (18:30)
[2016-09-29] MEDS ORDERED: MORPHINE SULFATE 4 MG/ML INJ IV PRN (18:30)
--- NOTE | 2016-09-29 18:31 | HHI.HP ---
HPI Service [facility] Hospitalists Primary Care Physician Trent Daily MD Admission Diagnosis enteritis Chief Complaint: abdominal pain since wednesday with nausea and vomit loose stool Travel History International Travel<30 Days: No Contact w/Intl Traveler <30 Da: No Traveled to Known Affected Are: No History of Present Illness This is a 71-year-old male who presents to the emergency department with 2 days of abdominal pain described as constant, severe, worse on the left side, feeling similar to when he said diverticulitis in the past. He took ciprofloxacin and Flagyl which he has at home this morning but his symptoms of only worsened. He's vomited several times. He's been feverish. He has had a hernia repair in the past but no other abdominal surgeries. He has had some loose stools. He is currently being worked up by his primary care physician for malignancy and has a PET scan ordered for later this week. Patient had slightly elevated WBC and CT showed inflammation intestine consistent with enteritis. Review of Systems Gastrointestinal: COMPLAINS OF: Abdominal pain, Diarrhea, Nausea, Vomiting Past Family Social History Past Medical History cad stent,GERD,diverticulitis,cva,myasthenia Gravis Past Surgical History hernia,stent cataract Reported Medications Lortab (Hydrocodone-Acetaminophen) 5-325 Mg Tab 1 Tab PO Q6H PRN Reported Ciprofloxacin (Ciprofloxacin HCl) 500 Mg Tab 500 Mg PO BID Metronidazole 500 Mg Tab 500 Mg PO BID [fdguard ] 1 Tab PO Q4-6H PRN Pyridostigmine (Pyridostigmine [place]) 60 Mg Tab 90 Mg PO HS Pyridostigmine (Pyridostigmine [place]) 60 Mg Tab 60 Mg PO BID Imuran (Azathioprine) 50 Mg Tab 50 Mg PO BID Hazardous agent: use appropriate precautions for handling and disposal. Probenecid 500 Mg Tab 500 Mg PO Q12HR Nexium 24 HR (Esomeprazole DR) 20 Mg Capdr 40 Mg PO BID Lisinopril 5 Mg Tab 5 Mg PO DAILY Synthroid (Levothyroxine Sodium) 75 Mcg Tab 75 Mcg PO DAILY Atenolol 50 Mg Tab 50 Mg PO DAILY Folic Acid 400 Mcg Tab 400 Mcg PO DAILY Aspirin 81 Mg Chew 81 Mg CHEW DAILY Vitamin D3 (Cholecalciferol) 1,000 Unit Tab 1,000 Units PO BID Vitamin B-12 (Cyanocobalamin) 1,000 Mcg Tab 1,000 Mcg SQ MONTHLY Iron (Ferrous Sulfate) 325 Mg Tab 325 Mg PO DAILY Take Allergies: Coded Allergies: Aggrenox (Verified Allergy, Severe, Hives, 09/29/16) Ondansetron (Verified Allergy, Severe, DIARRHEA, 09/29/16) Pravastatin (Verified Allergy, Severe, Anaphylaxis, 09/29/16) Ranitidine (Verified Allergy, Severe, DIZZINESS, 09/29/16) Metoclopramide (Verified Allergy, Intermediate, DISORIENTED; VERY NERVOUS , 09/29/16) Uncoded Allergies: DETROL (Allergy, Severe, ., 09/18/15) Social History NS,ND Physical Exam Vital Signs GENERAL: SKIN: Warm and dry. HEAD: Atraumatic. Normocephalic. EYES: Pupils equal and round. No scleral icterus. No injection or drainage. ENT: No nasal bleeding or discharge. Mucous membranes pink and moist. NECK: Trachea midline. No JVD. CARDIOVASCULAR: Regular rate and rhythm. RESPIRATORY: No accessory muscle use. Clear to auscultation. Breath sounds equal bilaterally. GASTROINTESTINAL: Abdomen soft, -tender diffuse, nondistended. Hepatic and splenic margins not palpable. MUSCULOSKELETAL: Extremities without clubbing, cyanosis, or edema. No obvious deformities. NEUROLOGICAL: Awake and alert. No obvious cranial nerve deficits. Motor grossly within normal limits. Five out of 5 muscle strength in the arms and legs. Normal speech. PSYCHIATRIC: Appropriate mood and affect; insight and judgment normal. Vital Signs Date Time Temp Pulse Resp B/P Pulse Ox O2 Delivery O2 Flow Rate FiO2 09/29/16 17:49 71 136/69 95 Room Air 09/29/16 14:49 Room Air 09/29/16 14:32 97.6 69 17 114/66 98 Physical Exam . Laboratory Laboratory Tests Test 09/29/16 15:01 White Blood Count 14.9 Red Blood Count 5.14 Hemoglobin 16.1 Hematocrit 48.2 Mean Corpuscular Volume 93.8 Mean Corpuscular Hemoglobin 31.3 Mean Corpuscular Hemoglobin 33.3 Concent Red Cell Distribution Width 13.5 Platelet Count 201 Mean Platelet Volume 7.8 Neutrophils (%) (Auto) 88.8 Lymphocytes (%) (Auto) 3.4 Monocytes (%) (Auto) 7.4 Eosinophils (%) (Auto) 0.1 Basophils (%) (Auto) 0.3 Neutrophils # (Auto) 13.2 Lymphocytes # (Auto) 0.5 Monocytes # (Auto) 1.1 Eosinophils # (Auto) 0.0 Basophils # (Auto) 0.0 CBC Comment AUTO DIFF Differential Comment AUTO DIFF CONFIRMED Platelet Estimate NORMAL Platelet Morphology Comment NORMAL Red Cell Morphology Comment NORMAL Urine Color DARK-YELLOW Urine Turbidity HAZY Urine pH 5.5 Urine Specific [place] 1.035 Urine Protein 30 Urine Glucose (UA) TRACE Urine Ketones 10 Urine Occult Blood TRACE Urine Nitrite NEG Urine Bilirubin NEG Urine Urobilinogen 2.0 Urine Leukocyte Esterase TRACE Urine RBC 5 Urine WBC 6 Urine Squamous Epithelial 1 Cells Urine Mucus MANY Microscopic Urinalysis Comment CULT NOT INDICATED Sodium Level 137 Potassium Level 4.1 Chloride Level 105 Carbon Dioxide Level 26.5 Anion Gap 6 Blood Urea Nitrogen 21 Creatinine 1.22 Estimat Glomerular Filtration 58 Rate Random Glucose 116 Calcium Level 9.2 Total Bilirubin 1.7 Aspartate Amino Transf 14 (AST/SGOT) Alanine Aminotransferase 14 (ALT/SGPT) Alkaline Phosphatase 56 Total Protein 6.7 Albumin 3.8 Lipase 142 Result Diagram: 09/29/16 1501 09/29/16 1501 Imaging Last 24 hours Impressions Abdomen/Pelvis CT 09/29/16 1446 Signed Impressions: Service Date/Time: Thursday, September 29, 2016 16:33 - CONCLUSION: 1. Abnormal bowel gas pattern with multiple loops of abnormal small bowel in the midabdomen with circumferential wall thickening and mild surrounding inflammatory change. Findings are of concern for infectious and inflammatory conditions. 2. Mild diverticulosis. 3. Small amount of ascitic fluid. 4. 2 small nonobstructing left renal calculi. Gene Ruiz MD Course in er started on IV antibiotics Assessment and Plan Problem List: (1) Enteritis Status: Acute Plan: will continue flagyl and cipro IV and IV fluid pain control has PET scan later this week will ask patient GI doctor to see as well Assessment and Plan further plan as case develops Code Status full Discussed Condition With patient Physician Certification 2 Midnight Certification Type: Admission for Inpatient Services Order for Inpatient Services The services are ordered in accordance with Medicare regulations or non- Medicare payer requirements, as applicable. In the case of services not specified as inpatient-only, they are appropriately provided as inpatient services in accordance with the 2-midnight benchmark. Estimated LOS (days): 2 2 days is the estimated time the patient will need to remain in the hospital, assuming treatment plan goals are met and no additional complications. Post-Hospital Plan: Not yet determined aDquan Swan MD Sep 29, 2016 18:31
[2016-09-29 19:23] VITALS: BP 136/69
[2016-09-29 20:00] VITALS: BP 118/66; PULSE 62; RESP 18; TEMP 98.2; O2SAT 95
[2016-09-29] MEDS: SODIUM CHLOR 0.45% 1000 ML INJ 1,000 ML IV SCH (21:30)
[2016-09-29] MEDS: PANTOPRAZOLE SOD 40 MG DELAYED RELEASE TAB PO SCH (21:31)
[2016-09-29] MEDS: SODIUM CHLORIDE 0.9% FLUSH 10 ML FLUSH IV FLUSH SCH (21:31)
[2016-09-29] MEDS: CHOLECALCIFEROL (VIT D3) 1000 UNIT TAB PO SCH (21:31)
[2016-09-29] MEDS: PROBENECID 500 MG TAB PO SCH (21:31)
[2016-09-29] MEDS: PYRIDOSTIGMINE BROMIDE 60 MG TAB PO SCH (21:31)
[2016-09-29] MEDS: azaTHIOprine 50 MG TAB PO SCH (21:32)
[2016-09-30] VITALS: BP 110/59; PULSE 55; RESP 18; TEMP 97.9; O2SAT 95
[2016-09-30] MEDS: metroNIDAZOLE 500 MG INJ 100 ML IV SCH ×3 (02:43→18:44)
[2016-09-30 04:00] VITALS: BP 112/57; PULSE 64; RESP 18; TEMP 97.9; O2SAT 94
[2016-09-30] MEDS: LEVOTHYROXINE SODIUM 75 MCG TAB PO SCH (05:34)
[2016-09-30] MEDS: CIPROFLOXACIN 200 MG PREMIX 100 ML IV SCH ×2 (05:34→17:20)
[2016-09-30] MEDS: SODIUM CHLORIDE 0.9% FLUSH 10 ML FLUSH IV FLUSH SCH ×2 (07:29→20:00)
[2016-09-30] MEDS: SODIUM CHLOR 0.45% 1000 ML INJ 1,000 ML IV SCH ×2 (07:36→19:59)
[2016-09-30 07:37] LABS: AUTOMATED NEUTROPHIL # 4.2 TH/MM3 (1.8-7.7); BASOPHIL % 0.7 % (0.0-2.0); EOSINOPHIL # 0.1 TH/MM3 (0-0.4); EOSINOPHIL % 1.9 % (0.0-4.0); HEMATOCRIT 37.9 % (39.0-51.0); HEMO FLAGS DIFF FINAL; LYMPH % 10.9 % (9.0-44.0); LYMPHOCYTE # 0.6 TH/MM3 (1.0-4.8); MEAN CELL VOLUME 92.8 FL (80.0-100.0); MEAN CORPUSCULAR HEMOGLOBIN 31.3 PG (27.0-34.0); MEAN CORPUSCULAR HGB CONC 33.7 % (32.0-36.0); MONO % 12.2 % (0.0-8.0); NEUT % 74.3 % (16.0-70.0); PLATELET COUNT 144 TH/MM3 (150-450); RED BLOOD COUNT 4.08 MIL/MM3 (4.50-5.90); RED CELL DISTRIBUTION WIDTH 13.9 % (11.6-17.2); WHITE BLOOD COUNT 5.7 TH/MM3 (4.0-11.0)
[2016-09-30] MEDS: PYRIDOSTIGMINE BROMIDE 60 MG TAB PO SCH ×3 (08:00→22:13)
[2016-09-30 08:01] VITALS: BP 123/65; PULSE 62; RESP 18; TEMP 98.5; O2SAT 95
[2016-09-30 08:10] LABS: ALKALINE PHOSPHATASE 48 U/L (45-117); ALT (GPT) 13 U/L (12-78); ANION GAP 5 MEQ/L (5-15); AST (GOT) 13 U/L (15-37); BICARBONATE 28.6 MEQ/L (21.0-32.0); BLOOD UREA NITROGEN 16 MG/DL (7-18); CHLORIDE 106 MEQ/L (98-107); GLOMERULAR FILTRATION RATE 66 ML/MIN (>89); POTASSIUM 4.3 MEQ/L (3.5-5.1); SODIUM (NA) 140 MEQ/L (136-145); TOTAL BILIRUBIN ADULT 1.4 MG/DL (0.2-1.0)
[2016-09-30] MEDS: FOLIC ACID 1 MG TAB PO SCH (08:37)
[2016-09-30] MEDS: ATENOLOL 50 MG TAB PO SCH (08:37)
[2016-09-30] MEDS: PANTOPRAZOLE SOD 40 MG DELAYED RELEASE TAB PO SCH ×2 (08:37→20:00)
[2016-09-30] MEDS: azaTHIOprine 50 MG TAB PO SCH ×2 (08:37→20:00)
[2016-09-30] MEDS: FERROUS SULFATE 325 MG (65 MG ELEMENTAL IRON) TAB PO SCH (08:37)
[2016-09-30] MEDS: ASPIRIN 81 MG CHEW TAB CHEW SCH (08:37)
[2016-09-30] MEDS: PROBENECID 500 MG TAB PO SCH ×2 (08:37→20:00)
[2016-09-30] MEDS: LISINOPRIL 5 MG TAB PO SCH (08:37)
[2016-09-30] MEDS: CHOLECALCIFEROL (VIT D3) 1000 UNIT TAB PO SCH ×2 (08:37→20:00)
--- NOTE | 2016-09-30 09:05 | PD.CONS ---
HPI History of Present Illness This is a 71 year old male with a hx of gastroparesis, duodenal ulcer, gastritis , suspected diverticulitis who came to the ER for evaluation of nausea, vomiting , abdominal pain. According to Dr. Sears's last note in August of this year, he has had 2 episodes, 1 year apart- he was evaluated in ER at that time and CT revealed possible inflammation in the fourth portion of his duodenum/jejunum. He was evaluted with MR enterography, Capsule endoscopy (07/17/16) revealed gastritis in the antrum, small ulcer in the duodenum, possible biopsy site, patient had enteroscopy with biopsy day before, superficial erythema and duodenum jejunum possible related to recent enteroscopy. Enteroscopy (07/15/16) normal duodenum, gastritis in the antrum. Duodenal mucosa showing no pathologic abnormality, including no evidence of celiac disease, gastric antral mucosa showing mild chronic and active gastritis negative for H. pylori. Colonoscopy (09/09/16) revealed pandiverticulosis, mostly left colon, diminutive polyp in descending colon, retroflex views revealed internal grade 1 hemorrhoids , digital rectal exam was performed and revealed small external hemorrhoids. Hyperplastic polyp. He also had a CTA this year which revealed focal pericolic soft tissue density, likely scarring, diverticulosis. IBD labs were negative. A PET scan was scheduled for tomorrow to further evaluate this. He reports that he was doing well up until Wednesday night/Wednesday, when he had the sudden onset of nausea/vomiting and abdominal pain. He reports that he went to [place] [employer] on Wednesday night and started feeling ill afterwards. He states his also ate there and did not have any issues, but that he gave his dog the same food and his dog became ill and starting vomiting and eating grass. He reports that he had persistent nausea/vomiting, consisting of undigested food and then bilious material. After he vomited, he started having a "squeezing" type pain in his RUQ that radiated across his epigastric area to his LUQ. This was constant and a "10" on scale 0-10. He also had associated diarrhea with multiple episodes of loose dark stools, although he does take a vitamin and says he always has dark stools since he started this. He also reports fevers at home, although he did not actually take his temperature. This continued and therefore he came to the ER on yesterday. He had elevated WBC 14.9. CT scan abdomen and pelvis (09/29/16) revealed 1. Abnormal bowel gas pattern with multiple loops of abnormal small bowel in the midabdomen with circumferential wall thickening and mild surrounding inflammatory change. Findings are of concern for infectious and inflammatory conditions. 2. Mild diverticulosis. 3. Small amount of ascitic fluid. 4. 2 small nonobstructing left renal calculi. He was started on IVF and Cipro and Flagyl. He is currently sitting up in the chair and states he is no longer having any abdominal pain, nausea, vomiting or diarrhea. (Shania Carlton) PFSH Past Medical History Atherosclerosis of aorta B12 deficiency BPH Chronic obstructive pulmonary disease Chronic kidney disease Coronary artery disease Degenerative disc disease of the cervical spine Diabetes Diverticulosis Gastroparesis GERD Hiatal hernia Hypertension Hyperlipidemia Hypothyroidism Myasthenia gravis Vitamin D deficiency Colon polyps Kidney stones Recurrent N/V, Abdominal pain with inflammation in SB Past Surgical History Appendectomy Hip arthroscopic surgery EGD/colonoscopy Capsule endoscopy Cataract surgery PTCA Shoulder surgery Sigmoidoscopy Vasectomy TURP Ventral hernia repair (Shania Carlton) Coded Allergies: Aggrenox (Verified Allergy, Severe, Hives, 09/29/16) Ondansetron (Verified Allergy, Severe, DIARRHEA, 09/29/16) Pravastatin (Verified Allergy, Severe, Anaphylaxis, 09/29/16) Ranitidine (Verified Allergy, Severe, DIZZINESS, 09/29/16) Metoclopramide (Verified Allergy, Intermediate, DISORIENTED; VERY NERVOUS , 09/29/16) Uncoded Allergies: DETROL (Allergy, Severe, ., 09/18/15) Medications Allergies Coded Allergies Type Severity Reaction Last Updated Verified Aggrenox Allergy Severe Hives 09/29/16 Yes Ondansetron Allergy Severe DIARRHEA 09/29/16 Yes Pravastatin Allergy Severe Anaphylaxis 09/29/16 Yes Ranitidine Allergy Severe DIZZINESS 09/29/16 Yes Metoclopramide Allergy Intermediate DISORIENTED; VERY NERVOUS 09/29/16 Yes Uncoded Allergies Type Severity Reaction Last Updated Verified DETROL Allergy Severe . 09/18/15 Active Scripts Medications Dose Route/Sig Days Date Category Dose Instructions Ciprofloxacin (Ciprofloxacin HCl) 500 Mg Tab 500 Mg PO BID 09/29/16 Reported Metronidazole 500 Mg Tab 500 Mg PO BID 09/29/16 Reported Lortab (Hydrocodone-Acetaminophen) 5-325 Mg Tab 1 Tab PO Q6H PRN 07/11/16 Rx [fdguard ] 1 Tab PO Q4-6H PRN 07/11/16 Reported Pyridostigmine (Pyridostigmine [place]) 60 Mg Tab 90 Mg PO HS 07/11/16 Reported Pyridostigmine (Pyridostigmine [place]) 60 Mg Tab 60 Mg PO BID 07/11/16 Reported Imuran (Azathioprine) 50 Mg Tab 50 Mg PO BID 07/11/16 Reported Hazardous agent: use appropriate precautions for handling and disposal. Probenecid 500 Mg Tab 500 Mg PO Q12HR 07/11/16 Reported Nexium 24 HR (Esomeprazole DR) 20 Mg Capdr 40 Mg PO BID 07/11/16 Reported Lisinopril 5 Mg Tab 5 Mg PO DAILY 07/11/16 Reported Synthroid (Levothyroxine Sodium) 75 Mcg Tab 75 Mcg PO DAILY 07/11/16 Reported Atenolol 50 Mg Tab 50 Mg PO DAILY 07/11/16 Reported Folic Acid 400 Mcg Tab 400 Mcg PO DAILY 07/11/16 Reported Aspirin 81 Mg Chew 81 Mg CHEW DAILY 07/11/16 Reported Vitamin D3 (Cholecalciferol) 1,000 Unit Tab 1,000 Units PO BID 07/11/16 Reported Vitamin B-12 (Cyanocobalamin) 1,000 Mcg Tab 1,000 Mcg SQ MONTHLY 07/11/16 Reported Iron (Ferrous Sulfate) 325 Mg Tab 325 Mg PO DAILY 07/11/16 Reported Take Family History Family history of heart disease Family history of liver disease Social History Smoked half a pack of cigarettes per day 20 years, quit in 1989 (Shania Carlton) Review of Systems Constitutional: COMPLAINS OF: Fatigue, Fever, DENIES: Chills Respiratory: DENIES: Cough Cardiovascular: DENIES: Chest pain Gastrointestinal: COMPLAINS OF: Abdominal pain, Black stools (dark stools), Diarrhea, Nausea, Vomiting, Swelling of Abdomen, DENIES: Heartburn, Hematemesis Musculoskeletal: DENIES: Joint pain Integumentary: DENIES: Rash Neurologic: DENIES: Headache Psychiatric: DENIES: Confusion (Shania Carlton) GI Exam Vitals I&O Vital Signs Date Time Temp Pulse Resp B/P Pulse Ox O2 Delivery O2 Flow Rate FiO2 09/30/16 04:00 97.9 64 18 112/57 94 09/30/16 00:00 97.9 55 18 110/59 95 09/29/16 20:00 98.2 62 18 118/66 95 09/29/16 19:23 69 17 136/69 95 09/29/16 17:49 71 136/69 95 Room Air 09/29/16 14:49 Room Air 09/29/16 14:32 97.6 69 17 114/66 98 I/O 09/29/16 09/29/16 09/29/16 09/30/16 09/30/16 09/30/16 07:00 15:00 23:00 07:00 15:00 23:00 Intake Total 240 ml Balance 240 ml Intake Oral 240 ml # Voids 1 # Bowel Movements 0 Imaging Last Impressions Abdomen/Pelvis CT 09/29/16 1446 Signed Impressions: Service Date/Time: Thursday, September 29, 2016 16:33 - CONCLUSION: 1. Abnormal bowel gas pattern with multiple loops of abnormal small bowel in the midabdomen with circumferential wall thickening and mild surrounding inflammatory change. Findings are of concern for infectious and inflammatory conditions. 2. Mild diverticulosis. 3. Small amount of ascitic fluid. 4. 2 small nonobstructing left renal calculi. Gene Ruiz MD Laboratory Test 09/29/16 09/30/16 15:01 06:39 White Blood Count 14.9 TH/MM3 5.7 TH/MM3 Red Blood Count 5.14 MIL/MM3 4.08 MIL/MM3 Hemoglobin 16.1 GM/DL 12.8 GM/DL Hematocrit 48.2 % 37.9 % Mean Corpuscular Volume 93.8 FL 92.8 FL Mean Corpuscular Hemoglobin 31.3 PG 31.3 PG Mean Corpuscular Hemoglobin 33.3 % 33.7 % Concent Red Cell Distribution Width 13.5 % 13.9 % Platelet Count 201 TH/MM3 144 TH/MM3 Mean Platelet Volume 7.8 FL 7.8 FL Neutrophils (%) (Auto) 88.8 % 74.3 % Lymphocytes (%) (Auto) 3.4 % 10.9 % Monocytes (%) (Auto) 7.4 % 12.2 % Eosinophils (%) (Auto) 0.1 % 1.9 % Basophils (%) (Auto) 0.3 % 0.7 % Neutrophils # (Auto) 13.2 TH/MM3 4.2 TH/MM3 Lymphocytes # (Auto) 0.5 TH/MM3 0.6 TH/MM3 Monocytes # (Auto) 1.1 TH/MM3 0.7 TH/MM3 Eosinophils # (Auto) 0.0 TH/MM3 0.1 TH/MM3 Basophils # (Auto) 0.0 TH/MM3 0.0 TH/MM3 CBC Comment AUTO DIFF DIFF FINAL Differential Comment AUTO DIFF CONFIRMED Platelet Estimate NORMAL Platelet Morphology Comment NORMAL Red Cell Morphology Comment NORMAL Urine Color DARK-YELLOW Urine Turbidity HAZY Urine pH 5.5 Urine Specific [place] 1.035 Urine Protein 30 mg/dL Urine Glucose (UA) TRACE mg/dL Urine Ketones 10 mg/dL Urine Occult Blood TRACE Urine Nitrite NEG Urine Bilirubin NEG Urine Urobilinogen 2.0 MG/DL Urine Leukocyte Esterase TRACE Urine RBC 5 /hpf Urine WBC 6 /hpf Urine Squamous Epithelial 1 /hpf Cells Urine Mucus MANY /lpf Microscopic Urinalysis Comment CULT NOT INDICATED Sodium Level 137 MEQ/L 140 MEQ/L Potassium Level 4.1 MEQ/L 4.3 MEQ/L Chloride Level 105 MEQ/L 106 MEQ/L Carbon Dioxide Level 26.5 MEQ/L 28.6 MEQ/L Anion Gap 6 MEQ/L 5 MEQ/L Blood Urea Nitrogen 21 MG/DL 16 MG/DL Creatinine 1.22 MG/DL 1.10 MG/DL Estimat Glomerular Filtration 58 ML/MIN 66 ML/MIN Rate Random Glucose 116 MG/DL 107 MG/DL Calcium Level 9.2 MG/DL 8.4 MG/DL Total Bilirubin 1.7 MG/DL 1.4 MG/DL Aspartate Amino Transf 14 U/L 13 U/L (AST/SGOT) Alanine Aminotransferase 14 U/L 13 U/L (ALT/SGPT) Alkaline Phosphatase 56 U/L 48 U/L Total Protein 6.7 GM/DL 5.9 GM/DL Albumin 3.8 GM/DL 3.1 GM/DL Lipase 142 U/L Physical Examination HEENT: Normocephalic; atraumatic; no jaundice. CHEST: CTA CARDIAC: RRR ABDOMEN: Soft, nondistended, nontender; no hepatosplenomegaly; bowel sounds are present in all four quadrants. EXTREMITIES: No clubbing, cyanosis, or edema. SKIN: Normal; no rash; no jaundice. SPRING FITTER: No focal deficits; alert and oriented times three. (Shania Carlton [facility]) Assessment and Plan Plan ASSESSMENT: - Enteritis, Abdominal pain, N/V- Recurrent. Pt has had several episodes of this in past. He was previously seen in the ER has had 2 episodes, 1 year apart- he was seen in ER and had possible inflammation in the fourth portion of his duodenum/jejunum. He was evaluated with MR enterography, Capsule endoscopy (07/17/16) revealed gastritis in the antrum, small ulcer in the duodenum, possible biopsy site, patient had enteroscopy with biopsy day before, superficial erythema and duodenum jejunum possible related to recent enteroscopy. Enteroscopy (07/15/16) normal duodenum, gastritis in the antrum. Duodenal mucosa showing no pathologic abnormality, including no evidence of celiac disease, gastric antral mucosa showing mild chronic and active gastritis negative for H. pylori. Colonoscopy (09/09/16) revealed pandiverticulosis, mostly left colon, diminutive polyp in descending colon, retroflex views revealed internal grade 1 hemorrhoids, digital rectal exam was performed and revealed small external hemorrhoids. Hyperplastic polyp. He also had a CTA this year which revealed focal pericolic soft tissue density, likely scarring, diverticulosis. IBD labs were negative. A PET scan was scheduled for tomorrow to further evaluate this. This episode began late Wednesday night/early Wednesday night after eating pizza. His at the same and was fine. He complains of fever, n/v/d, abdominal pain. Came to the ER- WBC 14.9. CT scan abdomen and pelvis (09/29/16) revealed 1. Abnormal bowel gas pattern with multiple loops of abnormal small bowel in the midabdomen with circumferential wall thickening and mild surrounding inflammatory change. Findings are of concern for infectious and inflammatory conditions. 2. Mild diverticulosis. 3. Small amount of ascitic fluid. 4. 2 small nonobstructing left renal calculi. He was started on IVF and Cipro and Flagyl. He is currently sitting up in the chair and states he is no longer having any abdominal pain, nausea, vomiting or diarrhea. - Leukocytosis. Improved with levaquin/flagyl. - Anemia, 12.8/37.9. - GERD. PPI. - Myasthenia gravis, HTN, Hypothyroidism, BPH, DM, CAD per primary PLAN: - Clear liquids - Cont. PPI - Cont. Flagyl, Cipro - Cont. IVF - Stool for CDIff, C/S, Giardia, WBC - Monitor labs - Supportive care - Further recommendations to follow based on results of above - Pt seen and examined by Dr. Yen and myself and this note is written on his behalf (Shania Carlton) Physician Comments Patient seen and examined Agree with above Continue with current supportive care Monitor labs Extensive workup in the recent past has been unremarkable for a cause The pain is described as episodic always in the same place which is the upper abdomen Concern here could be that of intermittent bowel obstruction and possibility of underlying adhesions I would recommend a surgical evaluation to further evaluate the pain (Lonnie Yen MD) Shania Carlton Sep 30, 2016 09:05 Lonnie Yen MD Sep 30, 2016 23:10
--- NOTE | 2016-09-30 09:52 | HHI.PR ---
Subjective Remarks Pt is 71 y/o M with multiple medical problems. Pt has a h/o diverticulosis, diverticulitis, and gastroparesis. --Hx of colon polyps: A colonoscopy on 05-20-10 showed severe diverticulosis and three hyperplastic polyps and the path report showed mild nonspecific chronic active colitis. A colonoscopy on 11-30-11 showed a small polyp and diverticulosis. A colonoscopy on 07-04-14 showed 3 small polyps (path report showed a tubular adenoma and diverticulosis. A sigmoidoscopy on 05-06-16 showed diverticulosis and a polyp (path report showed hyperplasia). 07/2016 capsule endoscopy showed small ulcer possible bx site from prev previous 1 enteroscopy, superficial erythema in duodenum and jejunum possibly from enteroscopy as well. 07/2016 enteroscopy showed gastritis, abx given IBD panel neg. 2016 CTA showed stable focal pericolic soft tissue density, likely scarring, diverticulosis Pt had CT abd/pelvis 07/31/16 at PO imaging ordered by Dr. Sears - focal pericolic spiculated soft tissue density in the region of the proximal sigmoid colon which has been stable dating back to April 2012 and likely representing scarring related to previous inflammatory/infectious process. Although no plasm is also in the differential, it is much less likely as there has been no significant change compared to 04/18/2012. PET CT was recommended for further clarification. PET/CT had been scheduled for 09/02/16, but patient canceled due to cold symptoms. Objective Vitals Vital Signs Date Time Temp Pulse Resp B/P Pulse Ox O2 Delivery O2 Flow Rate FiO2 09/30/16 04:00 97.9 64 18 112/57 94 09/30/16 00:00 97.9 55 18 110/59 95 09/29/16 20:00 98.2 62 18 118/66 95 09/29/16 19:23 69 17 136/69 95 09/29/16 17:49 71 136/69 95 Room Air 09/29/16 14:49 Room Air 09/29/16 14:32 97.6 69 17 114/66 98 09/29/16 09/29/16 09/30/16 15:00 23:00 07:00 Intake Total 240 ml Balance 240 ml Intake Oral 240 ml # Voids 1 # Bowel Movements 0 Result Diagram: 09/30/16 0639 09/30/16 0639 Imaging Last 24 hours Impressions Abdomen/Pelvis CT 09/29/16 1446 Signed Impressions: Service Date/Time: Thursday, September 29, 2016 16:33 - CONCLUSION: 1. Abnormal bowel gas pattern with multiple loops of abnormal small bowel in the midabdomen with circumferential wall thickening and mild surrounding inflammatory change. Findings are of concern for infectious and inflammatory conditions. 2. Mild diverticulosis. 3. Small amount of ascitic fluid. 4. 2 small nonobstructing left renal calculi. Gene Ruiz MD Objective Remarks GENERAL: This is a well-nourished, well-developed patient, in no apparent distress. CARDIOVASCULAR: Regular rate and rhythm without murmurs, gallops, or rubs. RESPIRATORY: Clear to auscultation. Breath sounds equal bilaterally. No wheezes , rales, or rhonchi. GASTROINTESTINAL: Abdomen soft, non-tender, nondistended. Normal active bowel sounds MUSCULOSKELETAL: Extremities without clubbing, cyanosis, or edema. NEURO: Alert & Oriented x4 to person, place, time, situation. Moves all ext x4 A/P Problem List: (1) Enteritis Status: Acute Plan: --Hx of colon polyps: A colonoscopy on 05-20-10 showed severe diverticulosis and three hyperplastic polyps and the path report showed mild nonspecific chronic active colitis. A colonoscopy on 11-30-11 showed a small polyp and diverticulosis. A colonoscopy on 07-04-14 showed 3 small polyps (path report showed a tubular adenoma and diverticulosis. A sigmoidoscopy on 05-06-16 showed diverticulosis and a polyp (path report showed hyperplasia). 07/2016 capsule endoscopy showed small ulcer possible bx site from prev previous 1 enteroscopy, superficial erythema in duodenum and jejunum possibly from enteroscopy as well. 07/2016 enteroscopy showed gastritis, abx given IBD panel neg. 2017 CTA showed stable focal pericolic soft tissue density, likely scarring, diverticulosis Pt had CT abd/pelvis 07/31/16 at PO imaging ordered by Dr. Sears - focal pericolic spiculated soft tissue density in the region of the proximal sigmoid colon which has been stable dating back to April 2012 and likely representing scarring related to previous inflammatory/infectious process. Although no plasm is also in the differential, it is much less likely as there has been no significant change compared to 04/18/2012. PET CT was recommended for further clarification. - comgmt with GI - continue flagyl/cipro IV - norco prn - pt had be re-scheduled for outpt PET CT d/t abnormality identified on outpt CT abd/pelvis 07/31/16 likely representing scarring at the proximal sigmoid colon (2) Gout Status: Acute Plan: - probenecid (3) Myasthenia gravis Status: Acute Plan: - Imuran (azathiprine) - pyridostigmine (4) GERD (gastroesophageal reflux disease) Status: Acute Plan: - PPI (5) HTN (hypertension) Status: Acute Plan: - atenolol, lisinopril (6) Hypothyroid Status: Acute Plan: - levothyroxine (7) BPH (benign prostatic hyperplasia) Status: Acute Plan: - Pt follows with Dr. Dykes - s/p TURP with some urinary incontinence (8) DM2 (diabetes mellitus, type 2) Status: Chronic Plan: - diet controlled (9) CAD (coronary artery disease) Status: Acute Plan: - Pt follows with Dr. Chaparro - atenolol, ASA, statin, lisinopril Problem Qualifiers (1) GERD (gastroesophageal reflux disease): Qualified Code: K21.9 - Gastroesophageal reflux disease, esophagitis presence not specified (2) HTN (hypertension): Qualified Code: I10 - Essential hypertension (3) Hypothyroid: Qualified Code: E03.9 - Hypothyroidism, unspecified type (4) DM2 (diabetes mellitus, type 2): (5) CAD (coronary artery disease): Qualified Code: I25.10 - Coronary artery disease involving [place] heart without angina pectoris, unspecified vessel or lesion type Adalberto Hoang DO Sep 30, 2016 09:52
[2016-09-30 12:01] VITALS: BP 153/69; PULSE 54; RESP 18; TEMP 98.1; O2SAT 95
[2016-09-30] MEDS ORDERED: PYRIDOSTIGMINE BROMIDE 60 MG TAB PO SCH (16:00)
[2016-09-30 16:01] VITALS: BP 162/72; PULSE 57; RESP 18; TEMP 98.1; O2SAT 95
[2016-09-30 20:00] VITALS: BP 122/66; PULSE 59; RESP 18; TEMP 98.3; O2SAT 97
[2016-10-01] VITALS: BP 123/69; PULSE 54; RESP 20; TEMP 98.1; O2SAT 95
[2016-10-01] MEDS: metroNIDAZOLE 500 MG INJ 100 ML IV SCH ×3 (01:40→10:37)
[2016-10-01 04:00] VITALS: BP 131/62; PULSE 59; RESP 20; TEMP 97.8; O2SAT 95
[2016-10-01] MEDS: CIPROFLOXACIN 200 MG PREMIX 100 ML IV SCH (05:27)
[2016-10-01] MEDS: LEVOTHYROXINE SODIUM 75 MCG TAB PO SCH (05:28)
[2016-10-01 08:00] VITALS: BP 160/72; PULSE 60; RESP 16; TEMP 97.7; O2SAT 93
[2016-10-01] MEDS: ASPIRIN 81 MG CHEW TAB CHEW SCH (09:33)
[2016-10-01] MEDS: LISINOPRIL 5 MG TAB PO SCH (09:33)
[2016-10-01] MEDS: CHOLECALCIFEROL (VIT D3) 1000 UNIT TAB PO SCH (09:33)
[2016-10-01] MEDS: FOLIC ACID 1 MG TAB PO SCH (09:33)
[2016-10-01] MEDS: PANTOPRAZOLE SOD 40 MG DELAYED RELEASE TAB PO SCH (09:33)
[2016-10-01] MEDS: FERROUS SULFATE 325 MG (65 MG ELEMENTAL IRON) TAB PO SCH (09:33)
[2016-10-01] MEDS: PROBENECID 500 MG TAB PO SCH (09:33)
[2016-10-01] MEDS: azaTHIOprine 50 MG TAB PO SCH (09:33)
[2016-10-01] MEDS: SODIUM CHLORIDE 0.9% FLUSH 10 ML FLUSH IV FLUSH SCH (09:33)
[2016-10-01] MEDS: ATENOLOL 50 MG TAB PO SCH (09:33)
[2016-10-01] MEDS: PYRIDOSTIGMINE BROMIDE 60 MG TAB PO SCH ×2 (09:44→13:28)
[2016-10-01] MEDS ORDERED: METR-1 PO (11:44)
[2016-10-01] MEDS ORDERED: CIPR500T2 PO (11:44)
--- NOTE | 2016-10-01 11:50 | HHI.PR ---
Subjective Remarks Pt's abdominal pain is resolved. Pt is tolerating clear liquids. Pt is requesting to have his diet advanced and discharge to home. Objective Vitals Vital Signs Date Time Temp Pulse Resp B/P Pulse Ox O2 Delivery O2 Flow Rate FiO2 10/01/16 08:00 97.7 60 16 160/72 93 10/01/16 04:00 97.8 59 20 131/62 95 10/01/16 00:00 98.1 54 20 123/69 95 09/30/16 20:00 98.3 59 18 122/66 97 09/30/16 16:01 98.1 57 18 162/72 95 09/30/16 12:01 98.1 54 18 153/69 95 09/30/16 09/30/16 10/01/16 15:00 23:00 07:00 Intake Total 360 ml 754 ml 480 ml Output Total 2 ml Balance 360 ml 754 ml 478 ml Intake Oral 360 ml 480 ml IV Total 754 ml Output Urine Total 2 ml # Voids 6 # Bowel Movements 2 Result Diagram: 09/30/16 0639 09/30/16 0639 Imaging Last 24 hours Impressions Abdomen/Pelvis CT 09/29/16 1446 Signed Impressions: Service Date/Time: Thursday, September 29, 2016 16:33 - CONCLUSION: 1. Abnormal bowel gas pattern with multiple loops of abnormal small bowel in the midabdomen with circumferential wall thickening and mild surrounding inflammatory change. Findings are of concern for infectious and inflammatory conditions. 2. Mild diverticulosis. 3. Small amount of ascitic fluid. 4. 2 small nonobstructing left renal calculi. Gene Ruiz MD Objective Remarks GENERAL: This is a well-nourished, well-developed patient, in no apparent distress. CARDIOVASCULAR: Regular rate and rhythm without murmurs, gallops, or rubs. RESPIRATORY: Clear to auscultation. Breath sounds equal bilaterally. No wheezes , rales, or rhonchi. GASTROINTESTINAL: Abdomen soft, non-tender, nondistended. Normal active bowel sounds MUSCULOSKELETAL: Extremities without clubbing, cyanosis, or edema. NEURO: Alert & Oriented x4 to person, place, time, situation. Moves all ext x4 A/P Problem List: (1) Enteritis Status: Acute Plan: --Hx of colon polyps: A colonoscopy on 05-20-10 showed severe diverticulosis and three hyperplastic polyps and the path report showed mild nonspecific chronic active colitis. A colonoscopy on 11-30-11 showed a small polyp and diverticulosis. A colonoscopy on 07-04-14 showed 3 small polyps (path report showed a tubular adenoma and diverticulosis. A sigmoidoscopy on 05-06-16 showed diverticulosis and a polyp (path report showed hyperplasia). 07/2016 capsule endoscopy showed small ulcer possible bx site from prev previous 1 enteroscopy, superficial erythema in duodenum and jejunum possibly from enteroscopy as well. 07/2016 enteroscopy showed gastritis, abx given IBD panel neg. 2017 CTA showed stable focal pericolic soft tissue density, likely scarring, diverticulosis Pt had CT abd/pelvis 07/31/16 at PO imaging ordered by Dr. Sears - focal pericolic spiculated soft tissue density in the region of the proximal sigmoid colon which has been stable dating back to April 2012 and likely representing scarring related to previous inflammatory/infectious process. Although no plasm is also in the differential, it is much less likely as there has been no significant change compared to 04/18/2012. PET CT was recommended for further clarification. - Case d/w GI service (10/01/16) - change flagyl/cipro to PO x 5d - reschedule PET CT with [facility] - f/u with PCP in 1 week - f/u with GI, Dr. Sears, in 2 week - f/u with [facility] General Surgery, Dr. Billy Bazan, in 2 weeks, evaluate for adhesions (2) Gout Status: Acute Plan: - probenecid (3) Myasthenia gravis Status: Acute Plan: - Imuran (azathiprine) - pyridostigmine (4) GERD (gastroesophageal reflux disease) Status: Acute Plan: - PPI (5) HTN (hypertension) Status: Acute Plan: - atenolol, lisinopril (6) Hypothyroid Status: Acute Plan: - levothyroxine (7) BPH (benign prostatic hyperplasia) Status: Acute Plan: - Pt follows with Dr. Dykes - s/p TURP with some urinary incontinence (8) DM2 (diabetes mellitus, type 2) Status: Chronic Plan: - diet controlled (9) CAD (coronary artery disease) Status: Acute Plan: - Pt follows with Dr. Chaparro - atenolol, ASA, statin, lisinopril Problem Qualifiers (1) GERD (gastroesophageal reflux disease): Qualified Code: K21.9 - Gastroesophageal reflux disease, esophagitis presence not specified (2) HTN (hypertension): Qualified Code: I10 - Essential hypertension (3) Hypothyroid: Qualified Code: E03.9 - Hypothyroidism, unspecified type (4) DM2 (diabetes mellitus, type 2): (5) CAD (coronary artery disease): Qualified Code: I25.10 - Coronary artery disease involving [place] heart without angina pectoris, unspecified vessel or lesion type Adalberto Hoang DO Oct 01, 2016 11:50
[2016-10-01 12:00] VITALS: BP 158/74; PULSE 59; RESP 16; TEMP 98.6; O2SAT 95
[2016-10-01] MEDS: SODIUM CHLOR 0.45% 1000 ML INJ 1,000 ML IV SCH (13:22)
== END 2016-10-01 14:04 | disposition home or self-care (01) ==
LOC: NEPD 14:30 → INTOOBSV 17:13 → NEDA 17:13 → N04B 19:43
PROVIDERS: ADMIT Hospitalist; ATTEND Hospitalist
DX: K52.9 Noninfective gastroenteritis and colitis, unspecified (principal); K57.90 Diverticulosis of intestine, part unspecified, without perforation or abscess without bleeding; G70.00 Myasthenia gravis without (acute) exacerbation; K21.0 Gastro-esophageal reflux disease with esophagitis; K64.0 First degree hemorrhoids; K64.4 Residual hemorrhoidal skin tags; K31.84 Gastroparesis; M10.9 Gout, unspecified; I12.9 Hypertensive chronic kidney disease with stage 1 through stage 4 chronic kidney disease, or unspecified chronic kidney disease; N18.9 Chronic kidney disease, unspecified; E03.9 Hypothyroidism, unspecified; I25.10 Atherosclerotic heart disease of native coronary artery without angina pectoris; N40.0 Benign prostatic hyperplasia without lower urinary tract symptoms; E11.22 Type 2 diabetes mellitus with diabetic chronic kidney disease; D64.9 Anemia, unspecified; D12.4 Benign neoplasm of descending colon; E78.5 Hyperlipidemia, unspecified; J44.9 Chronic obstructive pulmonary disease, unspecified; E78.00 Pure hypercholesterolemia, unspecified; N20.0 Calculus of kidney; Z86.73 Personal history of transient ischemic attack (TIA), and cerebral infarction without residual deficits; Z87.891 Personal history of nicotine dependence
CPT/HCPCS: 74177; 80053; 81001; 83690; 85025; 96361; 96374; 96375; 99285; G0378; J0744; J2270; J2405; J7030; J7500; Q9967

== ENCOUNTER 2016-11-23 23:26 | Emergency (ER) | payer MEDICARE ==
[~2016-11-23] VITALS: Ht 172.7 cm; Wt 73.0 kg
[~2016-11-23 23:26] MED LIST changes: +CIPR500T2 PO; -HYDR-3533 PO; +METR-1 PO; -VIAG100T PO; -[UNRECOGNIZED DRUG - OTHER] PO
[2016-11-23 23:28] VITALS: BP 125/88; PULSE 61; RESP 16; TEMP 98; O2SAT 96
[2016-11-23] MEDS ORDERED: HYOS0.128 PO (23:39)
[2016-11-23] MEDS ORDERED: SILD20TA11 PO (23:39)
[2016-11-23] MEDS ORDERED: CYAN100025 SL (23:39)
[2016-11-23] MEDS ORDERED: ATOR40TA16 PO (23:39)
[2016-11-23] MEDS ORDERED: MIRA3350 PO (23:39)
[2016-11-23] MEDS ORDERED: FERR324T4 PO (23:39)
[2016-11-23] MEDS ORDERED: ONDA4TAB7 SL (23:39)
[2016-11-24] MEDS ORDERED: PANTOPRAZOLE SODIUM 40 MG VIAL IV PUSH ONE (00:15)
[2016-11-24 00:25] VITALS: O2SAT 95
[2016-11-24 00:29] LABS: AUTOMATED NEUTROPHIL # 8.5 TH/MM3 (1.8-7.7); BASOPHIL # 0.1 TH/MM3 (0-0.2); BASOPHIL % 0.7 % (0.0-2.0); EOSINOPHIL # 0.1 TH/MM3 (0-0.4); EOSINOPHIL % 0.7 % (0.0-4.0); HEMATOCRIT 48.2 % (39.0-51.0); HEMO FLAGS DIFF FINAL; LYMPH % 9.3 % (9.0-44.0); MEAN CELL VOLUME 92.8 FL (80.0-100.0); MEAN CORPUSCULAR HEMOGLOBIN 31.9 PG (27.0-34.0); MEAN CORPUSCULAR HGB CONC 34.4 % (32.0-36.0); MONO % 9.4 % (0.0-8.0); NEUT % 79.9 % (16.0-70.0); PLATELET COUNT 222 TH/MM3 (150-450); RED BLOOD COUNT 5.19 MIL/MM3 (4.50-5.90); RED CELL DISTRIBUTION WIDTH 14.2 % (11.6-17.2); WHITE BLOOD COUNT 10.6 TH/MM3 (4.0-11.0)
[2016-11-24 00:39] LABS: APTT (PATIENT) 27.1 SEC (24.3-30.1)
--- NOTE | 2016-11-24 00:39 | RADRPT ---
EXAM DATE/TIME: 11/24/2016 00:18 [place] COMPARISON: 12/16/2012. INDICATIONS : Chest and abdominal pain. MEDICAL HISTORY : Cardiovascular disease. Hypertension. Diabetes mellitus type 1.GERD, CVA. SURGICAL HISTORY : None. ENCOUNTER: Initial ACUITY: 1 year PAIN SCORE: 5/10 LOCATION: Bilateral lower chest FINDINGS: Trace basilar atelectasis, mostly on the left. No pleural effusion or pneumothorax. Heart size stable , upper limits of normal. Thoracic aorta is tortuous. CONCLUSION: Minimal left base atelectasis. Yasmani Bran MD on November 24, 2016 at 0:37 Board Certified Radiologist. This report was verified electronically.
[2016-11-24 00:43] LABS: ANION GAP 6 MEQ/L (5-15); AST (GOT) 12 U/L (15-37); BICARBONATE 29.3 MEQ/L (21.0-32.0); BLOOD UREA NITROGEN 18 MG/DL (7-18); CHLORIDE 103 MEQ/L (98-107); GLOMERULAR FILTRATION RATE 69 ML/MIN (>89); MAGNESIUM 2.3 MG/DL (1.5-2.5); POTASSIUM 3.9 MEQ/L (3.5-5.1); SODIUM (NA) 138 MEQ/L (136-145)
[2016-11-24 00:47] LABS: ALKALINE PHOSPHATASE 61 U/L (45-117); ALT (GPT) 17 U/L (12-78); TOTAL BILIRUBIN ADULT 1.5 MG/DL (0.2-1.0)
--- NOTE | 2016-11-24 00:52 | PD ---
HPI Chief Complaint: Abdominal Pain Time Seen by Provider: 23:47 Travel History International Travel<30 days: No Contact w/Intl Traveler<30days: No Traveled to known affect area: No History of Present Illness HPI The patient is a 71 year old male who presents to the [facility] emergency department with a history of abdominal pain for the last year and /2 that recurred at 4 AM on Wednesday. It is a constant pain. It is cramping pain with intermittent sharp pains that radiate up. It waxes and wanes in severity. The patient reports that the pain is in bilateral lower quadrants of the abdomen and at times will radiate up into the midepigastric area. He has had N/Vx2 associated with this. He has had diarrhea x 3 today. No blood in the stool. The patient reports that the pain made him feel short of breath for approximately 30 minutes tonight. He was followed by Dr. Sears for his gastroenterology care, however he recently switched over to Dr. Couch. He is seen Dr. Couch twice in the last 2 weeks. He reports that he was recently started on Levsin for the pain, however his was not helping with the pain prior to arrival. He was told that the patient's symptoms were likely related to irritable bowel syndrome. The patient reports that he has undergone colonoscopy , endoscopy, pill camera evaluation, however the only abnormalities that have been determined words that he has had diverticulitis in the past and diverticulosis. The patient also had an inflammatory enteritis that was treated with antibiotic. I review systems, the patient denies any recent fevers , cough, congestion, neck pain, chest pain, shortness of breath currently, urinary symptoms, or neurologic symptoms. [facility] Past Medical History Narrative Medical The patient's past medical history is significant for irritable bowel syndrome, diverticulitis, diverticulosis, myasthenia gravis atherosclerosis of the aorta, B12 deficiency, benign prostatic hypertrophy, COPD, chronic renal insufficiency , coronary artery disease, degenerative disc disease of the cervical spine, diabetes mellitus, gastroparesis, acid reflux, hiatal hernia, hypertension, hyperlipidemia, hypothyroid disorder, history of kidney stones. Asthma: No Autoimmune Disease: No Anxiety: No Depression: No Heart Rhythm Problems: No Cancer: No Cardiac Catheterization: Yes Cardiovascular Problems: Yes (3 STENTS) High Cholesterol: Yes Chest Pain: Yes (ischemic heart disease) Congestive Heart Failure: No COPD: No Cerebrovascular Accident: Yes (small) Diabetes: Yes Patient Takes Glucophage: Yes Diminished Hearing: No Diverticulitis: Yes Endocrine: Yes (MYASTHENIA GRAVIS) Gastrointestinal Disorders: Yes (reflux,diverticulosis) GERD: Yes Gout: Yes Genitourinary: No Hepatitis: No Hiatal Hernia: No Hypertension: Yes Immune Disorder: No Kidney Stones: Yes Medical other: Yes (GERD, MYASTHENIA GRAVIS) Musculoskeletal: No Neurologic: Yes (myanthesis gravis in past) Psychiatric: No Reproductive: No Respiratory: No Immunizations Current: Yes Migraines: No Renal Failure: No Seizures: No Sleep Apnea: No Thyroid Disease: Yes Ulcer: No Tetanus Vaccination: < 5 Years Influenza Vaccination: Yes PNEUMOCCOCAL Vaccine (Year): 1 Past Surgical History Narrative Surgical The patient's past surgical history is significant for hernia repair, appendectomy, cardiac cath with stent placement x2, cataract sx, TURP in 08/2013. Abdominal Surgery: Yes (hernia repair) Cardiac Surgery: Yes (stents x2) Coronary Stent: Yes (MAR 2012) Ear Surgery: No Endocrine Surgery: No Eye Surgery: Yes (bilat. cataracts with lens implants) Genitourinary Surgery: No Gynecologic Surgery: No Oral Surgery: No Pacemaker: No Thoracic Surgery: No Other Surgery: Yes (turp 08/2013) Social History Alcohol Use: No Tobacco Use: No Substance Use: No Allergies-Medications (Allergen,Severity, Reaction): Coded Allergies: Aggrenox (Verified Allergy, Severe, Hives, 11/23/16) Ondansetron (Verified Allergy, Severe, DIARRHEA, 11/23/16) Pravastatin (Verified Allergy, Severe, Anaphylaxis, 11/23/16) Ranitidine (Verified Allergy, Severe, DIZZINESS, 11/23/16) Metoclopramide (Verified Allergy, Intermediate, DISORIENTED; VERY NERVOUS , 11/23/16) Uncoded Allergies: DETROL (Allergy, Severe, ., 09/18/15) Reported Meds & Prescriptions Reported Meds & Active Scripts Active Reported Hyoscyamine (Hyoscyamine Sulfate) 0.125 Mg Tab 0.125 Mg PO Q6H Miralax Powder (Polyethylene Glycol 3350 Powder) 17 Gm Powd 17 Gm PO DAILY Mix and dissolve one measuring cap-ful (17 grams) in water or juice. Ondansetron Odt 4 Mg Tab 4 Mg SL Q12HR PRN Atorvastatin (Atorvastatin Calcium) 40 Mg Tab 40 Mg PO HS Sildenafil 20 Mg Tab 20 Mg PO TID B-12 (Cyanocobalamin) 1,000 Mcg Subl 1,000 Mcg SL DAILY Ferrous Sulfate DR (Ferrous Sulfate) 324 Mg Tabdr 324 Mg PO DAILY Pyridostigmine (Pyridostigmine [place]) 60 Mg Tab 60 Mg PO BID Imuran (Azathioprine) 50 Mg Tab 50 Mg PO BID Hazardous agent: use appropriate precautions for handling and disposal. Probenecid 500 Mg Tab 500 Mg PO Q12HR Nexium 24 HR (Esomeprazole DR) 20 Mg Capdr 40 Mg PO BID Synthroid (Levothyroxine Sodium) 75 Mcg Tab 75 Mcg PO DAILY Atenolol 50 Mg Tab 50 Mg PO DAILY Folic Acid 400 Mcg Tab 400 Mcg PO DAILY Aspirin 81 Mg Chew 81 Mg CHEW DAILY Vitamin D3 (Cholecalciferol) 1,000 Unit Tab 1,000 Units PO BID Review of Systems Except as stated in HPI: all other systems reviewed are Neg General / Constitutional: No: Fever Eyes: No: Visual changes HENT: No: Headaches Cardiovascular: No: Chest Pain or Discomfort Respiratory: Positive: Shortness of Breath, No: Cough Gastrointestinal: Positive: Nausea, Vomiting, Diarrhea, Abdominal Pain, Changes in Bowel Habits, Indigestion, Loss of Appetite, No: Hematemesis, Hematochezia Genitourinary: No: Dysuria Musculoskeletal: No: Pain Skin: No Rash Neurologic: No: Weakness, Focal Abnormalities, Change in Mentation, Slurred Speech, Sensory Disturbance Psychiatric: No: Depression Endocrine: No: Polydipsia Hematologic/Lymphatic: No: Easy Bruising Physical Exam Narrative General: The patient is a well-developed well-nourished male in no acute distress. Head and Neck exam: Head is normocephalic atraumatic. Eyes: EOMI, pupils are equal round and reactive to light. Nose: Midline septum with pink mucous membranes Mouth: Dentition unremarkable. Moist mucus membranes. Posterior oropharynx is not erythematous. No tonsillar hypertrophy. Uvula midline. Airway patent. Neck: No palpable lymphadenopathy. No nuchal rigidity. No thyromegaly. Cardiovascular: Regular rate and rhythm without murmurs, gallops, or rubs. No pulse deficit to the extremities of vomiting in consultation palpation of his radial artery. Lungs: Clear to auscultation bilaterally. No wheezes, rhonchi, or rales. Abdomen: Soft, with tenderness on palpation of bilateral lower quadrants of the abdomen. No guarding, rebound, or rigidity. Normal bowel sounds are audible. No tenderness on palpation of McBurney's point. Negative [place] sign. Extremities: No clubbing, cyanosis, or edema. 2+ pulses in all 4 extremities. No calf tenderness on palpation. Back: No costovertebral angle tenderness to palpation. Neurologic Exam: Grossly nonfocal. Skin Exam: No rash noted. Intact skin that is warm and dry. Data Data Last Documented VS Vital Signs Date Time Temp Pulse Resp B/P Pulse Ox O2 Delivery O2 Flow Rate FiO2 11/24/16 02:32 55 18 129/66 95 Room Air 11/23/16 23:28 98.0 Orders Electrocardiogram (11/24/16 00:03) Complete Blood Count With Diff (11/24/16 00:03) Comprehensive Metabolic Panel (11/24/16 00:03) Troponin I (11/24/16 00:03) Prothrombin Time / Inr (Pt) (11/24/16 00:03) Act Partial Throm Time (Ptt) (11/24/16 00:03) C-Reactive Protein (Crp) (11/24/16 00:03) Lipase (11/24/16 00:03) Urinalysis - C+S If Indicated (11/24/16 00:03) Magnesium (Mg) (11/24/16 00:03) Chest, Single Ap (11/24/16 00:03) Iv Access Insert/Monitor (11/24/16 00:03) Ecg Monitoring (11/24/16 00:03) Oximetry (11/24/16 00:03) Lactic Acid (11/24/16 00:03) Pantoprazole Inj (Protonix Inj) (11/24/16 00:15) W[place]gren Sedimentation Rate (11/24/16 00:06) Sodium Chlor 0.9% 1000 Ml Inj (Ns 1000 M (11/24/16 01:00) Prochlorperazine Inj (Compazine Inj) (11/24/16 01:00) Hydromorphone Pf Inj (Dilaudid Pf Inj) (11/24/16 02:30) Oral Rehydration (11/24/16 02:49) Labs Laboratory Tests Test 11/24/16 11/24/16 11/24/16 00:20 00:30 01:20 White Blood Count 10.6 TH/MM3 Red Blood Count 5.19 MIL/MM3 Hemoglobin 16.6 GM/DL Hematocrit 48.2 % Mean Corpuscular Volume 92.8 FL Mean Corpuscular Hemoglobin 31.9 PG Mean Corpuscular Hemoglobin 34.4 % Concent Red Cell Distribution Width 14.2 % Platelet Count 222 TH/MM3 Mean Platelet Volume 7.9 FL Neutrophils (%) (Auto) 79.9 % Lymphocytes (%) (Auto) 9.3 % Monocytes (%) (Auto) 9.4 % Eosinophils (%) (Auto) 0.7 % Basophils (%) (Auto) 0.7 % Neutrophils # (Auto) 8.5 TH/MM3 Lymphocytes # (Auto) 1.0 TH/MM3 Monocytes # (Auto) 1.0 TH/MM3 Eosinophils # (Auto) 0.1 TH/MM3 Basophils # (Auto) 0.1 TH/MM3 CBC Comment DIFF FINAL Differential Comment Erythrocyte Sedimentation Rate 1 mm/hr Prothrombin Time 11.0 SEC Prothromb Time International 1.0 RATIO Ratio Activated Partial 27.1 SEC Thromboplast Time Sodium Level 138 MEQ/L Potassium Level 3.9 MEQ/L Chloride Level 103 MEQ/L Carbon Dioxide Level 29.3 MEQ/L Anion Gap 6 MEQ/L Blood Urea Nitrogen 18 MG/DL Creatinine 1.06 MG/DL Estimat Glomerular Filtration 69 ML/MIN Rate Random Glucose 118 MG/DL Calcium Level 9.0 MG/DL Magnesium Level 2.3 MG/DL Total Bilirubin 1.5 MG/DL Aspartate Amino Transf 12 U/L (AST/SGOT) Alanine Aminotransferase 17 U/L (ALT/SGPT) Alkaline Phosphatase 61 U/L Troponin I LESS THAN 0.02 NG/ML C-Reactive Protein 0.44 MG/DL Total Protein 6.9 GM/DL Albumin 3.9 GM/DL Lipase 122 U/L Urine Color YELLOW Urine Turbidity CLEAR Urine pH 5.5 Urine Specific [place] 1.023 Urine Protein TRACE mg/dL Urine Glucose (UA) NEG mg/dL Urine Ketones NEG mg/dL Urine Occult Blood TRACE Urine Nitrite NEG Urine Bilirubin NEG Urine Urobilinogen LESS THAN 2.0 MG/DL Urine Leukocyte Esterase NEG Urine RBC LESS THAN 1 /hpf Urine WBC 2 /hpf Urine Squamous Epithelial <1 /hpf Cells Urine Bacteria RARE /hpf Urine Mucus MANY /lpf Microscopic Urinalysis Comment CULT NOT INDICATED Lactic Acid Level 1.0 mmol/L MDM Medical Decision Making Medical Screen Exam Complete: Yes Emergency Medical Condition: Yes Medical Record Reviewed: Yes Differential Diagnosis Ischemic bowel, versus inflammatory bowel disease, versus irritable bowel syndrome, versus gastroenteritis, versus colitis, versus diverticulitis Narrative Course During the course of the patients emergency department visit, the patients history, examination, and differential diagnosis were reviewed with the patient. The patient had IV access obtained and blood work sent for analysis. The patient was placed on a cistern room operator with oximetry and blood pressure monitoring. An EKG was done on arrival. The patient's EKG shows a sinus bradycardia, no acute ST segment elevation or depression, T waves inverted in V1. The patient was initially provided normal saline 1 L IV fluid bolus, Protonix 40 mg IV, Compazine 5 mg IV for nausea, hydromorphone 0.5 mg IV. The patients laboratory studies were reviewed and remarkable for a white count of 10.6, hemoglobin 16.6, platelets 222 with neutrophils 79.9, monocytes 9.4, sedimentation rate is 1 decreased the likelihood of an inflammatory bowel disease. CMP is remarkable for a glucose of 118, total bilirubin 1.5, AST 12, troponin I less than 0.02, lipase 122, lactic acid 1.0 decreasing the likelihood of ischemic bowel. PT PTT within normal limits. Urinalysis is unremarkable. Radiology studies were reviewed and remarkable for a chest x-ray that shows minimal left base atelectasis. The patient was reexamined and reportedly feeling improved. We did discuss doing further imaging at this time, however as he has had multiple CT scans done in the past he would like to avoid doing this at this time given the fact that his blood work shows no acute abnormality, I am agreeable with this plan. The patient will be discharged home with close follow-up with his colorectal specialist. The patient is resting comfortably and feels better, is alert and in no distress. The patients results and examination findings were discussed with the patient. The repeat examination is unremarkable and benign. The history, exam, diagnostic testing, and current condition do not suggest any significant pathology to warrant further testing, continued ED treatment, admission, or surgical evaluation at this point. The vital signs have been stable. The patient does not have uncontrollable pain, intractable vomiting, or other significant symptoms. The patient's condition is stable and appropriate for discharge. The patient will pursue further outpatient evaluation with a primary care physician or other designated or consulting physician as indicated in the discharge instructions. The patient expressed understanding and was agreeable with this plan. Diagnosis Primary Impression: Abdominal pain Qualified Code: R10.30 - Lower abdominal pain Referrals: Yasmani Couch MD 1 day Patient Instructions: Abdominal Pain (ED), General Instructions Additional Instructions: The patient is given a prescription for ciprofloxacin and Flagyl. The patient is instructed to discuss with his colorectal surgeon starting this medication tomorrow if the symptoms continue. Med/Other Pt SpecificInfo: Prescription(s) given Scripts Ciprofloxacin 500 Mg [id number] Mg PO BID #10 TAB Ref 0 Prov:Moraima Pearce MD 11/24/16 Metronidazole (Flagyl)500 Mg [id number] Mg PO TID #15 TAB Ref 0 Prov:Moraima Pearce MD 11/24/16 Disposition: 01 DISCHARGE HOME Condition: Stable Moraima Pearce MD Nov 24, 2016 00:52
[2016-11-24] MEDS ORDERED: SODIUM CHLOR 0.9% 1000 ML INJ 1,000 ML IV ONE (01:00)
[2016-11-24] MEDS ORDERED: PROCHLORPERAZINE INJ 10 MG/2 ML VIAL IV PUSH ONE (01:00)
[2016-11-24 01:06] LABS: BACTERIA, URINE RARE /hpf; BLOOD, URINE TRACE (NEG); COMMENT (UR) CULT NOT INDICATED; CULTURE IF INDICATED CULT NOT INDICATED; GLUCOSE,URINE NEG (NEG); KETONE, URINE NEG (NEG); MUCUS URINE MANY /lpf (OCC); NITRITE,URINE NEG (NEG); PH, URINE 5.5 (5.0-8.5); SQUAMOUS EPITHELIAL CELL URINE <1 /hpf (0-5); URINE COLOR YELLOW (YELLW/STRAW)
[2016-11-24] MEDS ORDERED: HYDROmorphone HCL PF 1 MG/ML VIAL IV PUSH ONE (02:30)
[2016-11-24 02:32] VITALS: BP 129/66; PULSE 55; RESP 18; O2SAT 95
[2016-11-24] MEDS ORDERED: METR-1 PO (03:33)
[2016-11-24] MEDS ORDERED: CIPR500T2 PO (03:33)
--- NOTE | 2016-11-24 16:44 | EKG ---
Date Performed: 11/24/2016 Time Performed: 00:18:50 PTAGE: 71 years EKG: SINUS BRADYCARDIA POSSIBLE RIGHT VENTRICULAR CONDUCTION DELAY Since previous tracing, no si gnificant change noted BORDERLINE ECG PREVIOUS TRACING : 07/11/2016 17.21 DOCTOR: Mattie Rizo Interpretating Date/Time 11/24/2016 17:19:22
== END 2016-11-24 03:46 | disposition home or self-care (01) ==
LOC: NEPC 23:26
DX: R10.32 Left lower quadrant pain (principal); R10.31 Right lower quadrant pain; R19.7 Diarrhea, unspecified; R06.02 Shortness of breath; R07.9 Chest pain, unspecified; R00.1 Bradycardia, unspecified; G70.00 Myasthenia gravis without (acute) exacerbation; I12.9 Hypertensive chronic kidney disease with stage 1 through stage 4 chronic kidney disease, or unspecified chronic kidney disease; N18.9 Chronic kidney disease, unspecified; E53.8 Deficiency of other specified B group vitamins; J44.9 Chronic obstructive pulmonary disease, unspecified; E11.8 Type 2 diabetes mellitus with unspecified complications; E78.00 Pure hypercholesterolemia, unspecified; Z87.442 Personal history of urinary calculi; Z79.82 Long term (current) use of aspirin
CPT/HCPCS: 71010; 80053; 81001; 83605; 83690; 83735; 84484; 85025; 85610; 85652; 85730; 86140; 93005; 96361; 96374; 96375; 99285; C9113; J0780; J1170; J7030

== ENCOUNTER 2016-12-19 20:10 | Emergency (ER) | payer MEDICARE ==
[~2016-12-19 20:10] MED LIST changes: +ATOR40TA16 PO; +CYAN100025 SL; -FERR1TAB36 PO; +FERR324T4 PO; +HYOS0.128 PO; -LISI-519 PO; +MIRA3350 PO; +ONDA4TAB7 SL; +SILD20TA11 PO; -VITA10002 SQ
[2016-12-19 20:12] VITALS: BP 154/82; PULSE 73; RESP 16; TEMP 97.1; O2SAT 97
[2016-12-19] MEDS ORDERED: SODIUM CHLORIDE 0.9% FLUSH 10 ML FLUSH IV FLUSH PRN (22:15)
--- NOTE | 2016-12-19 23:02 | PD ---
HPI Chief Complaint: Abdominal Pain Time Seen by Provider: 22:05 Travel History International Travel<30 days: No Contact w/Intl Traveler<30days: No Traveled to known affect area: No History of Present Illness HPI This is a 71-year-old man who presents to the emergency department complaining of lower abdominal pain that started this afternoon associated with nausea vomiting and chills. His bowel movement been normal. No blood, diarrhea, or mucous. He is a history of myasthenia gravis, as well as IBS and diverticulitis. He apparently is been having multiple episodes of abdominal pain of unclear etiology. He's had episodes of diverticulitis, an enteritis in the past. Symptoms likely also think he may have IBS, or may have abdominal pain related to his myasthenia gravis. He looks overall well. No other complaints. He follows with Dr. Medeiros to gastroenterology, and with Dr. Prakash with colorectal surgery. History Past Medical History Narrative Medical Myasthenia gravis Hyperlipidemia Kidney stones Hypothyroidism CAD, stents GERD Diverticulitis PNEUMOCCOCAL Vaccine (Year): 1 Social History Alcohol Use: No Tobacco Use: No Allergies-Medications (Allergen,Severity, Reaction): Coded Allergies: Aggrenox (Verified Allergy, Severe, Hives, 12/19/16) Ondansetron (Verified Allergy, Severe, DIARRHEA, 12/19/16) Pravastatin (Verified Allergy, Severe, Anaphylaxis, 12/19/16) Ranitidine (Verified Allergy, Severe, DIZZINESS, 12/19/16) Metoclopramide (Verified Allergy, Intermediate, DISORIENTED; VERY NERVOUS , 12/19/16) Uncoded Allergies: DETROL (Allergy, Severe, ., 09/18/15) Reported Meds & Prescriptions Reported Meds & Active Scripts Active Ciprofloxacin (Ciprofloxacin HCl) 500 Mg Tab 500 Mg PO BID Flagyl (Metronidazole) 500 Mg Tab 500 Mg PO TID Reported Hyoscyamine (Hyoscyamine Sulfate) 0.125 Mg Tab 0.125 Mg PO Q6H Miralax Powder (Polyethylene Glycol 3350 Powder) 17 Gm Powd 17 Gm PO DAILY Mix and dissolve one measuring cap-ful (17 grams) in water or juice. Ondansetron Odt 4 Mg Tab 4 Mg SL Q12HR PRN Atorvastatin (Atorvastatin Calcium) 40 Mg Tab 40 Mg PO HS Sildenafil 20 Mg Tab 20 Mg PO TID B-12 (Cyanocobalamin) 1,000 Mcg Subl 1,000 Mcg SL DAILY Ferrous Sulfate DR (Ferrous Sulfate) 324 Mg Tabdr 324 Mg PO DAILY Pyridostigmine (Pyridostigmine [place]) 60 Mg Tab 60 Mg PO BID Imuran (Azathioprine) 50 Mg Tab 50 Mg PO BID Hazardous agent: use appropriate precautions for handling and disposal. Probenecid 500 Mg Tab 500 Mg PO Q12HR Nexium 24 HR (Esomeprazole DR) 20 Mg Capdr 40 Mg PO BID Synthroid (Levothyroxine Sodium) 75 Mcg Tab 75 Mcg PO DAILY Atenolol 50 Mg Tab 50 Mg PO DAILY Folic Acid 400 Mcg Tab 400 Mcg PO DAILY Aspirin 81 Mg Chew 81 Mg CHEW DAILY Vitamin D3 (Cholecalciferol) 1,000 Unit Tab 1,000 Units PO BID Review of Systems Except as stated in HPI: all other systems reviewed are Neg Physical Exam Narrative GENERAL: Well-appearing 71-year-old man, no acute distress. SKIN: Focused skin assessment warm/dry. NECK: Trachea midline. No JVD. CARDIOVASCULAR: Regular rate and rhythm. No murmur appreciated. RESPIRATORY: No accessory muscle use. Clear to auscultation. Breath sounds equal bilaterally. GASTROINTESTINAL: Abdomen is flat and soft. Mild to moderate diffuse tenderness. No rebound or guarding. MUSCULOSKELETAL: No obvious deformities. No clubbing. No cyanosis. No edema. NEUROLOGICAL: Awake and alert. No obvious cranial nerve deficits. Motor grossly within normal limits. Normal speech. PSYCHIATRIC: Appropriate mood and affect; insight and judgment normal. Data Data Last Documented VS Vital Signs Date Time Temp Pulse Resp B/P Pulse Ox O2 Delivery O2 Flow Rate FiO2 12/20/16 01:00 74 17 131/61 96 Room Air 12/19/16 20:12 97.1 Orders Complete Blood Count With Diff (12/19/16 22:12) Comprehensive Metabolic Panel (12/19/16 22:12) Lipase (12/19/16 22:12) Lactic Acid (12/19/16 22:12) Urinalysis - C+S If Indicated (12/19/16 22:12) Iv Access Insert/Monitor (12/19/16 22:12) Ecg Monitoring (12/19/16 22:12) Oximetry (12/19/16 22:12) Sodium Chloride 0.9% Flush (Ns Flush) (12/19/16 22:15) Ct Abd/Pel W Iv Contrast(Rout) (12/19/16 ) Urine Culture (12/19/16 23:10) Iohexol 350 Inj (Omnipaque 350 Inj) (12/20/16 01:13) Labs Laboratory Tests Test 12/19/16 12/19/16 22:40 23:10 Lactic Acid Level 1.4 mmol/L White Blood Count 14.6 TH/MM3 Red Blood Count 5.07 MIL/MM3 Hemoglobin 16.4 GM/DL Hematocrit 47.6 % Mean Corpuscular Volume 93.8 FL Mean Corpuscular Hemoglobin 32.4 PG Mean Corpuscular Hemoglobin 34.5 % Concent Red Cell Distribution Width 13.9 % Platelet Count 167 TH/MM3 Mean Platelet Volume 8.2 FL Neutrophils (%) (Auto) 92.2 % Lymphocytes (%) (Auto) 2.9 % Monocytes (%) (Auto) 4.6 % Eosinophils (%) (Auto) 0.1 % Basophils (%) (Auto) 0.2 % Neutrophils # (Auto) 13.5 TH/MM3 Lymphocytes # (Auto) 0.4 TH/MM3 Monocytes # (Auto) 0.7 TH/MM3 Eosinophils # (Auto) 0.0 TH/MM3 Basophils # (Auto) 0.0 TH/MM3 CBC Comment DIFF FINAL Differential Comment Sodium Level 139 MEQ/L Potassium Level 3.9 MEQ/L Chloride Level 106 MEQ/L Carbon Dioxide Level 25.9 MEQ/L Anion Gap 7 MEQ/L Blood Urea Nitrogen 21 MG/DL Creatinine 1.06 MG/DL Estimat Glomerular Filtration 69 ML/MIN Rate Random Glucose 151 MG/DL Calcium Level 9.2 MG/DL Total Bilirubin 1.3 MG/DL Aspartate Amino Transf 13 U/L (AST/SGOT) Alanine Aminotransferase 15 U/L (ALT/SGPT) Alkaline Phosphatase 52 U/L Total Protein 6.6 GM/DL Albumin 3.8 GM/DL Lipase 278 U/L Urine Color YELLOW Urine Turbidity HAZY Urine pH 5.5 Urine Specific [place] 1.032 Urine Protein 30 mg/dL Urine Glucose (UA) TRACE mg/dL Urine Ketones 40 mg/dL Urine Occult Blood TRACE Urine Nitrite NEG Urine Bilirubin NEG Urine Urobilinogen LESS THAN 2.0 MG/DL Urine Leukocyte Esterase NEG Urine RBC 4 /hpf Urine WBC 5 /hpf Urine Bacteria MOD /hpf Urine Hyaline Casts 3 /lpf Urine Mucus MANY /lpf Microscopic Urinalysis Comment CULTURE INDICATED MDM Medical Decision Making Medical Screen Exam Complete: Yes Emergency Medical Condition: Yes Interpretation(s) LABS: CBC is remarkable for mild leukocytosis. CMP is unremarkable. Lipase is normal. Lactate 1.4 CT abdomen and pelvis: Atherosclerosis, severe diverticulosis without definite diverticulitis, small moderate free fluid within the abdomen and pelvis, hepatic steatosis, stable nonobstructing left renal Caitlyn, abnormal inflammatory changes involving the jejunum with hyperemia is elevated thickening and mesenteric stranding. Differential Diagnosis Acute on chronic abdominal pain, IBS, IBD, diverticulitis, enteritis, other Narrative Course Medical decision making INITIAL: This 71 year-old woman who presents to the emergency department with abdominal pain. Recent history of abdominal pain, enteritis, diverticulitis. We'll check labs, CT, reassess. FINAL: 71-year-old man, several episodes of abdominal pain associated with appears to be a small bowel enteritis of unclear etiology. He's had extensive workup including CTAs endoscopies Endoscopies and Other Studies. He Looks Well. His White Count 14,000. He Is Followed Both with GI and with Dr. Prakash Who Appears to Be Taking the Lead on This. Dr. Prakash Is Not on Tonight. Patient's Doing Well. I Think He Safe for Outpatient Follow-Up. I don't think to be evaluated in calling the on-call doctor at 2 AM about this. Patient agrees to return for any worsening symptoms. Diagnosis Primary Impression: Enteritis Additional Instructions: Take Lortab as needed for pain. Take Flagyl as prescribed. Return to the emergency department for any recurrent or worsening symptoms. Call Dr. Prakash's office first thing on Wednesday to arrange for follow-up. Med/Other Pt SpecificInfo: Prescription(s) given Scripts Hydrocodone-Acetaminophen (Lortab)5-325 Mg Tab1-2 Tab PO Q6H PRN (PAIN) #12 TAB Prov:Popeye Hart MD 12/20/16 Metronidazole (Flagyl)500 Mg [id number] Mg PO TID #14 TAB Ref 0 Prov:Popeye Hart MD 12/20/16 Disposition: 01 DISCHARGE HOME Condition: Stable Popeye Hart MD Dec 19, 2016 23:02
[2016-12-19 23:07] LABS: AUTOMATED NEUTROPHIL # 13.5 TH/MM3 (1.8-7.7); BASOPHIL % 0.2 % (0.0-2.0); EOSINOPHIL % 0.1 % (0.0-4.0); HEMATOCRIT 47.6 % (39.0-51.0); HEMO FLAGS DIFF FINAL; LYMPH % 2.9 % (9.0-44.0); LYMPHOCYTE # 0.4 TH/MM3 (1.0-4.8); MEAN CELL VOLUME 93.8 FL (80.0-100.0); MEAN CORPUSCULAR HEMOGLOBIN 32.4 PG (27.0-34.0); MEAN CORPUSCULAR HGB CONC 34.5 % (32.0-36.0); MONO % 4.6 % (0.0-8.0); NEUT % 92.2 % (16.0-70.0); PLATELET COUNT 167 TH/MM3 (150-450); RED BLOOD COUNT 5.07 MIL/MM3 (4.50-5.90); RED CELL DISTRIBUTION WIDTH 13.9 % (11.6-17.2); WHITE BLOOD COUNT 14.6 TH/MM3 (4.0-11.0)
[2016-12-19 23:10] VITALS: BP 121/69; PULSE 83; RESP 17; O2SAT 98
[2016-12-19 23:42] LABS: ALKALINE PHOSPHATASE 52 U/L (45-117); TOTAL BILIRUBIN ADULT 1.3 MG/DL (0.2-1.0)
[2016-12-20 00:13] LABS: ALT (GPT) 15 U/L (12-78); ANION GAP 7 MEQ/L (5-15); AST (GOT) 13 U/L (15-37); BICARBONATE 25.9 MEQ/L (21.0-32.0); BLOOD UREA NITROGEN 21 MG/DL (7-18); CHLORIDE 106 MEQ/L (98-107); GLOMERULAR FILTRATION RATE 69 ML/MIN (>89); POTASSIUM 3.9 MEQ/L (3.5-5.1); SODIUM (NA) 139 MEQ/L (136-145)
[2016-12-20 00:45] LABS: BACTERIA, URINE MOD /hpf; BLOOD, URINE TRACE (NEG); COMMENT (UR) CULTURE INDICATED; CULTURE IF INDICATED CULTURE INDICATED; GLUCOSE,URINE TRACE mg/dL (NEG); HYALINE CAST, URINE 3 /lpf (RARE); KETONE, URINE 40 mg/dL (NEG); MUCUS URINE MANY /lpf (OCC); NITRITE,URINE NEG (NEG); PH, URINE 5.5 (5.0-8.5); URINE COLOR YELLOW (YELLW/STRAW)
[2016-12-20 01:00] VITALS: BP 131/61; PULSE 74; RESP 17; O2SAT 96
[2016-12-20] MEDS ORDERED: IOHEXOL 350 MG/ML 10 ML VIAL (for RAD DIAG) IV ONE (01:13)
--- NOTE | 2016-12-20 01:16 | RADRPT ---
EXAM DATE/TIME: 12/20/2016 00:47 This report includes an Addendum and supersedes previous reports for this exam. [facility] COMPARISON: CT ABDOMEN & PELVIS W CONTRAST, September 29, 2016, 16:33. INDICATIONS : Low abdominal pain and cramping. IV CONTRAST: 96 cc Omnipaque 350 (iohexol) IV ORAL CONTRAST: No oral contrast ingested. RADIATION DOSE: 8.82 CTDIvol (mGy) MEDICAL HISTORY : Hypertension. Diabetes mellitus type 2. Cerebrovascular disease.GERD, diverticulitis, CVA SURGICAL HISTORY : cardiac stents, hernia repair ENCOUNTER: Initial ACUITY: 1 day PAIN SCALE: 7/10 LOCATION: abdomen TECHNIQUE: Volumetric scanning of the abdomen and pelvis was performed. Using automated exposure control and ad justment of the mA and/or kV according to patient size, radiation dose was kept as low as reasonably achievable to obtain optimal diagnostic quality images. DICOM format image data is available electro nically for review and comparison. FINDINGS: There is hepatic steatosis, and a small amount of perihepatic free fluid and perisplenic fluid is lou ntified. The spleen, pancreas, adrenal glands are unremarkable. Stable nonobstructing left mid and lo wer pole renal calculi. There is no hydronephrosis. Urinary bladder unremarkable. The prostate is pro minent measuring 4.7 x 3.6 cm. There is severe diverticulosis of the colon. Numerous surgical clips a re seen along the anterior abdominal wall. There is atherosclerotic calcification of the aorta and il iac vasculature. Coronary artery calcification is noted. There is stable scarring at the right lung b ase. Osseous structures are intact. Coronal images best demonstrate hyperemia and circumferential bow el wall thickening involving numerous loops of jejunum in the left upper quadrant and mid abdomen wit h mild mesenteric edema identified. CONCLUSION: 1. Atherosclerosis. 2. Severe diverticulosis without definite evidence of diverticulitis. 3. Small amount of free fluid within the abdomen and pelvis. 4. Hepatic steatosis. 5. Stable nonobstructing left renal calculi. 6. Abnormal inflammatory changes involving the jejunum with hyperemia, bowel wall thickening and mese nteric stranding identified. A discrete transition point is not visualized. Caden Harrison MD on December 20, 2016 at 1:10 Board Certified Radiologist. This report was verified electronically. ADDENDUM: I discussed this patient with Dr. Couch and ultimately reviewed all of his inpatient outpatient abd omen and pelvis CTs and MRI studies over the last 3 years dating back to 2013. The patient has had mu ltiple episodes of small bowel wall thickening with inflammation. The segments involved have been in different locations with the proximal jejunum being involved twice. Based on the review of all the pr ior studies I believe the patient's recurrent abdominal pain is related to the small bowel disease an d not the patient's colon. Differential diagnostic considerations include ARIK inhibitor induced visceral angioedema, vasculitis, intramural hemorrhage, ischemia, and C1 esterase deficiency. Unlikely causes based on the clinical h istory provided include Crohn disease, nephrotic syndrome with hypoproteinemia, or lymphoproliferativ e disorders. Yasmani Gonzales MD on December 25, 2016 at 16:39 Board Certified Radiologist. This report was verified electronically.
[2016-12-20] MEDS ORDERED: HYDR-3533 PO (01:54)
[2016-12-20] MEDS ORDERED: METR-1 PO (01:54)
[2016-12-20 02:28] VITALS: BP 102/63
== END 2016-12-20 02:31 | disposition home or self-care (01) ==
LOC: NEPC 20:10
DX: K52.9 Noninfective gastroenteritis and colitis, unspecified (principal)
CPT/HCPCS: 74177; 80053; 81001; 83605; 83690; 85025; 87086; 99284; Q9967

== ENCOUNTER 2016-12-24 14:30 | Observation (INO) | payer MEDICARE ==
[~2016-12-24 14:30] MED LIST changes: +HYDR-3533 PO
[2016-12-24 14:32] VITALS: BP 165/80; PULSE 58; RESP 20; TEMP 98.4; O2SAT 97
--- NOTE | 2016-12-24 14:57 | PD ---
Physical Exam Time Seen by Provider: 14:55 Narrative 71 y/o male with recent esophageal dilation(performed by Bratu) presents with dysphagia for the past few hours. Vital signs reviewed. Seen at triage desk. Awaiting bed placement. Data Data Last Documented VS Vital Signs Date Time Temp Pulse Resp B/P Pulse Ox O2 Delivery O2 Flow Rate FiO2 12/24/16 14:32 98.4 58 20 165/80 97 Room Air [facility] Medical Record Reviewed: Yes Supervised Visit with JESUS: Pepito Martinez Dec 24, 2016 14:57
[2016-12-24 16:18] VITALS: PULSE 55; RESP 16; O2SAT 97
--- NOTE | 2016-12-24 16:51 | PD ---
HPI Chief Complaint: ENT Complaint Time Seen by Provider: 16:18 Travel History International Travel<30 days: No Contact w/Intl Traveler<30days: No Traveled to known affect area: No History of Present Illness HPI 71-year-old male presents with difficulty swallowing today. He states he feels like he can get it about long term down his throat and he will have issues. He denies any difficulty with breathing, fever, vomiting, significant pain or other concurrent complaints. He states he's had a recent esophageal dilation with Dr. Sears. Quality is hard to swallow. Severity is gets to his throat and will feel like it coming back up. PFSH Past Medical History Hx Anticoagulant Therapy: Yes (ASPIRIN) Asthma: No Autoimmune Disease: No Anxiety: No Depression: No Heart Rhythm Problems: No Cancer: No Cardiac Catheterization: Yes Cardiovascular Problems: Yes (STENTS) High Cholesterol: Yes Chest Pain: Yes (ischemic heart disease) Congestive Heart Failure: No COPD: No Cerebrovascular Accident: Yes (2011) Diabetes: Yes (DIET CONTROL) Patient Takes Glucophage: No Diminished Hearing: No Diverticulitis: Yes Endocrine: Yes (MYASTHENIA GRAVIS) Gastrointestinal Disorders: Yes (reflux,diverticulosis/DIVERTICULITIS) GERD: Yes Gout: Yes Genitourinary: No Hepatitis: No Hiatal Hernia: No Hypertension: Yes Immune Disorder: No Kidney Stones: Yes Medical other: No (GERD, MYASTHENIA GRAVIS) Musculoskeletal: No Neurologic: Yes (myanthesis gravis in past) Psychiatric: No Reproductive: No Respiratory: No Immunizations Current: Yes Migraines: No Renal Failure: No Seizures: No Sleep Apnea: No Thyroid Disease: Yes Ulcer: No Tetanus Vaccination: < 5 Years Influenza Vaccination: Yes PNEUMOCCOCAL Vaccine (Year): 1 Past Surgical History Abdominal Surgery: Yes (hernia repair) Cardiac Surgery: Yes (stents x2) Coronary Stent: Yes (MAR 2012) Ear Surgery: No Endocrine Surgery: No Eye Surgery: Yes (bilat. cataracts with lens implants) Genitourinary Surgery: No Gynecologic Surgery: No Oral Surgery: Yes (ESOPHAGEAL STRETCHING) Pacemaker: No Thoracic Surgery: No Other Surgery: Yes (turp 08/2013) Social History Alcohol Use: No Tobacco Use: No Substance Use: No Allergies-Medications (Allergen,Severity, Reaction): Coded Allergies: Aggrenox (Verified Allergy, Severe, Hives, 12/19/16) Ondansetron (Verified Allergy, Severe, DIARRHEA, 12/19/16) Pravastatin (Verified Allergy, Severe, Anaphylaxis, 12/19/16) Ranitidine (Verified Allergy, Severe, DIZZINESS, 12/19/16) Metoclopramide (Verified Allergy, Intermediate, DISORIENTED; VERY NERVOUS , 12/19/16) Uncoded Allergies: DETROL (Allergy, Severe, ., 09/18/15) Reported Meds & Prescriptions Reported Meds & Active Scripts Active Lortab (Hydrocodone-Acetaminophen) 5-325 Mg Tab 1-2 Tab PO Q6H PRN Ciprofloxacin (Ciprofloxacin HCl) 500 Mg Tab 500 Mg PO BID Reported Hyoscyamine (Hyoscyamine Sulfate) 0.125 Mg Tab 0.125 Mg PO Q6H Miralax Powder (Polyethylene Glycol 3350 Powder) 17 Gm Powd 17 Gm PO DAILY Mix and dissolve one measuring cap-ful (17 grams) in water or juice. Ondansetron Odt 4 Mg Tab 4 Mg SL Q12HR PRN Atorvastatin (Atorvastatin Calcium) 40 Mg Tab 40 Mg PO HS Sildenafil 20 Mg Tab 20 Mg PO TID B-12 (Cyanocobalamin) 1,000 Mcg Subl 1,000 Mcg SL DAILY Ferrous Sulfate DR (Ferrous Sulfate) 324 Mg Tabdr 324 Mg PO DAILY Pyridostigmine (Pyridostigmine [place]) 60 Mg Tab 60 Mg PO BID Imuran (Azathioprine) 50 Mg Tab 50 Mg PO BID Hazardous agent: use appropriate precautions for handling and disposal. Probenecid 500 Mg Tab 500 Mg PO Q12HR Nexium 24 HR (Esomeprazole DR) 20 Mg Capdr 40 Mg PO BID Synthroid (Levothyroxine Sodium) 75 Mcg Tab 75 Mcg PO DAILY Atenolol 50 Mg Tab 50 Mg PO DAILY Folic Acid 400 Mcg Tab 400 Mcg PO DAILY Aspirin 81 Mg Chew 81 Mg CHEW DAILY Vitamin D3 (Cholecalciferol) 1,000 Unit Tab 1,000 Units PO BID Review of Systems Except as stated in HPI: all other systems reviewed are Neg Physical Exam Narrative GENERAL: Well-nourished, well-developed patient. SKIN: Warm and dry. HEAD: Normocephalic and atraumatic. EYES: No injection or drainage. ENT: No nasal drainage noted. NECK: Supple, trachea midline. CARDIOVASCULAR: Regular rate and rhythm RESPIRATORY: No increased effort. No accessory muscle use. GASTROINTESTINAL: Abdomen soft, non-tender, nondistended. EXTREMITIES: No edema. NEUROLOGICAL: Awake and alert. Motor and sensory grossly within normal limits. Normal speech. Data Data Last Documented VS Vital Signs Date Time Temp Pulse Resp B/P Pulse Ox O2 Delivery O2 Flow Rate FiO2 12/24/16 16:18 55 16 97 Room Air 12/24/16 14:32 98.4 Orders Complete Blood Count With Diff (12/24/16 16:38) Comprehensive Metabolic Panel (12/24/16 16:38) Urinalysis - C+S If Indicated (12/24/16 16:38) Iv Access Insert/Monitor (12/24/16 16:38) Barium Swallow (12/24/16 ) Resp Request For Service (12/24/16 ) Admit Order (Ed Use Only) (12/24/16 18:18) Consult Gastroenterology (12/24/16 ) Labs Laboratory Tests Test 12/24/16 12/24/16 16:47 17:16 Urine Color YELLOW Urine Turbidity CLEAR Urine pH 6.0 Urine Specific [place] 1.010 Urine Protein NEG mg/dL Urine Glucose (UA) NEG mg/dL Urine Ketones NEG mg/dL Urine Occult Blood TRACE Urine Nitrite NEG Urine Bilirubin NEG Urine Urobilinogen LESS THAN 2.0 MG/DL Urine Leukocyte Esterase NEG Urine RBC 2 /hpf Urine WBC LESS THAN 1 /hpf Urine Bacteria RARE /hpf Urine Mucus FEW /lpf Microscopic Urinalysis Comment CULT NOT INDICATED White Blood Count 7.1 TH/MM3 Red Blood Count 4.76 MIL/MM3 Hemoglobin 15.4 GM/DL Hematocrit 44.3 % Mean Corpuscular Volume 93.1 FL Mean Corpuscular Hemoglobin 32.4 PG Mean Corpuscular Hemoglobin 34.8 % Concent Red Cell Distribution Width 13.3 % Platelet Count 167 TH/MM3 Mean Platelet Volume 7.8 FL Neutrophils (%) (Auto) 77.7 % Lymphocytes (%) (Auto) 11.5 % Monocytes (%) (Auto) 9.0 % Eosinophils (%) (Auto) 1.1 % Basophils (%) (Auto) 0.7 % Neutrophils # (Auto) 5.5 TH/MM3 Lymphocytes # (Auto) 0.8 TH/MM3 Monocytes # (Auto) 0.6 TH/MM3 Eosinophils # (Auto) 0.1 TH/MM3 Basophils # (Auto) 0.0 TH/MM3 CBC Comment DIFF FINAL Differential Comment Sodium Level 140 MEQ/L Potassium Level 3.8 MEQ/L Chloride Level 107 MEQ/L Carbon Dioxide Level 26.7 MEQ/L Anion Gap 6 MEQ/L Blood Urea Nitrogen 11 MG/DL Creatinine 0.97 MG/DL Estimat Glomerular Filtration 76 ML/MIN Rate Random Glucose 93 MG/DL Calcium Level 9.1 MG/DL Total Bilirubin 1.1 MG/DL Aspartate Amino Transf 25 U/L (AST/SGOT) Alanine Aminotransferase 27 U/L (ALT/SGPT) Alkaline Phosphatase 47 U/L Total Protein 6.9 GM/DL Albumin 3.9 GM/DL MDM Medical Decision Making Medical Screen Exam Complete: Yes Emergency Medical Condition: Yes Medical Record Reviewed: Yes (past history confirm) Interpretation(s) CBC & BMP Diagram 12/24/16 17:16 Last 24 hours Impressions Barium Swallow X-Ray 12/24/16 0000 Signed Impressions: Service Date/Time: December 16:53 - CONCLUSION: Normal swallowing without evidence of aspiration or obstruction. Barium pill lodged in the distal esophagus. The pt. reports difficulty in the upper esophagus. Popeye Huddleston MD Differential Diagnosis Esophageal stricture, vasospasm, myasthenia crisis Narrative Course Will check blood work, urinalysis, swallow evaluation after discussion with Dr. Sears and check vital capacity Will discuss barium swallow with Dr. Sears Patient updated and agrees to admission Physician Communication Physician Communication dr sears requests barium swallow dr sears states to admit, will place orders dr lea states to admit to dr brandon Diagnosis Primary Impression: Dysphagia Qualified Code: R13.10 - Dysphagia, unspecified type Additional Impression: Myasthenia gravis Admitting Information Admitting Physician Requests: Observation Katina Dominguez MD Dec 24, 2016 16:51
--- NOTE | 2016-12-24 17:21 | RADRPT ---
EXAM DATE/TIME: 12/24/2016 16:53 [facility] COMPARISON: No previous studies available for comparison. INDICATIONS : Dysphagia FLUORO TIME: 1.5 minutes IMAGE COUNT: 29 CONTRAST: 1. Liquid E-Z [place] Barium Sulfate (60% w/v, 41% w.w) MEDICAL HISTORY : Hypertension. Diabetes mellitus type 2. Cerebrovascular disease.GERD, diverticulitis, CVA SURGICAL HISTORY : cardiac stents, hernia repair ENCOUNTER: Initial ACUITY: 1 day PAIN SCORE: 2/10 LOCATION: chest FINDINGS: Air-contrast views of the hypopharynx demonstrate a normal mucosal surface without filling defect. R apid sequence images of the hypopharynx and cervical esophagus during the passage of barium demonstra te a normal swallowing function. No evidence of aspiration. Multiphasic examination of the esophagu s demonstrates no esophageal fold thickening, ulceration, or filling defect. The gastroesophageal ju nction is normal in configuration without evidence of hiatal hernia. The patient swallowed the bariu m tablet without difficulty. CONCLUSION: Normal swallowing without evidence of aspiration or obstruction. Barium pill lodged in the distal es ophagus. The pt. reports difficulty in the upper esophagus. Popeye Huddleston MD on December 24, 2016 at 17:18 Board Certified Radiologist. This report was verified electronically.
[2016-12-24 17:59] LABS: BACTERIA, URINE RARE /hpf; BLOOD, URINE TRACE (NEG); COMMENT (UR) CULT NOT INDICATED; CULTURE IF INDICATED CULT NOT INDICATED; GLUCOSE,URINE NEG (NEG); KETONE, URINE NEG (NEG); MUCUS URINE FEW /lpf (OCC); NITRITE,URINE NEG (NEG); URINE COLOR YELLOW (YELLW/STRAW)
[2016-12-24 18:00] LABS: AUTOMATED NEUTROPHIL # 5.5 TH/MM3 (1.8-7.7); BASOPHIL % 0.7 % (0.0-2.0); EOSINOPHIL # 0.1 TH/MM3 (0-0.4); EOSINOPHIL % 1.1 % (0.0-4.0); HEMATOCRIT 44.3 % (39.0-51.0); HEMO FLAGS DIFF FINAL; LYMPH % 11.5 % (9.0-44.0); LYMPHOCYTE # 0.8 TH/MM3 (1.0-4.8); MEAN CELL VOLUME 93.1 FL (80.0-100.0); MEAN CORPUSCULAR HEMOGLOBIN 32.4 PG (27.0-34.0); MEAN CORPUSCULAR HGB CONC 34.8 % (32.0-36.0); NEUT % 77.7 % (16.0-70.0); PLATELET COUNT 167 TH/MM3 (150-450); RED BLOOD COUNT 4.76 MIL/MM3 (4.50-5.90); RED CELL DISTRIBUTION WIDTH 13.3 % (11.6-17.2); WHITE BLOOD COUNT 7.1 TH/MM3 (4.0-11.0)
[2016-12-24 18:14] LABS: ALT (GPT) 27 U/L (12-78); ANION GAP 6 MEQ/L (5-15); AST (GOT) 25 U/L (15-37); BICARBONATE 26.7 MEQ/L (21.0-32.0); BLOOD UREA NITROGEN 11 MG/DL (7-18); CHLORIDE 107 MEQ/L (98-107); GLOMERULAR FILTRATION RATE 76 ML/MIN (>89); POTASSIUM 3.8 MEQ/L (3.5-5.1); SODIUM (NA) 140 MEQ/L (136-145)
[2016-12-24 18:16] LABS: ALKALINE PHOSPHATASE 47 U/L (45-117); TOTAL BILIRUBIN ADULT 1.1 MG/DL (0.2-1.0)
[2016-12-24 19:00] VITALS: O2SAT 96
[2016-12-24 19:16] VITALS: BP 142/89; PULSE 67; RESP 16; O2SAT 95
[2016-12-24] MEDS ORDERED: ACETAMINOPHEN/HYDROcodone 325 MG/5 MG TAB PO PRN (20:15)
[2016-12-24] MEDS ORDERED: ONDANSETRON HCL 4 MG/2 ML VIAL IV PUSH PRN (20:15)
--- NOTE | 2016-12-24 20:25 | HHI.HP ---
HPI Service [facility] Hospitalists Primary Care Physician Trent Daily MD Admission Diagnosis dysphagia Chief Complaint: difficulty swallowing Travel History International Travel<30 Days: No Contact w/Intl Traveler <30 Da: No Traveled to Known Affected Are: No History of Present Illness 71-year-old male presents with difficulty swallowing today. He states he feels like he can get it about fci down his throat and he will have issues. He denies any difficulty with breathing, fever, vomiting, significant pain or other concurrent complaints. He states he's had a recent esophageal dilation with Dr. Sears. Quality is hard to swallow. Severity is gets to his throat and will feel like it coming back up. Patient had barium swallow and pill stuck lower esophagus and GI wants to do dilation tomorrow. Patient was in er about 5 days ago for enteritis and is currently on cipro. Review of Systems Gastrointestinal: COMPLAINS OF: Abdominal pain, GERD, Nausea, Difficulty Swallowing Past Family Social History Past Medical History enteritis,cad,cardiac stents,hyperlipidemia,cva,dm diet controlled ,myasthenia gravis diverticular disease gout,hypertension Past Surgical History hernia repair,stent,cataract,esophageal stretching in past Reported Medications Lortab (Hydrocodone-Acetaminophen) 5-325 Mg Tab 1-2 Tab PO Q6H PRN Ciprofloxacin (Ciprofloxacin HCl) 500 Mg Tab 500 Mg PO BID Reported Hyoscyamine (Hyoscyamine Sulfate) 0.125 Mg Tab 0.125 Mg PO Q6H Miralax Powder (Polyethylene Glycol 3350 Powder) 17 Gm Powd 17 Gm PO DAILY Mix and dissolve one measuring cap-ful (17 grams) in water or juice. Ondansetron Odt 4 Mg Tab 4 Mg SL Q12HR PRN Atorvastatin (Atorvastatin Calcium) 40 Mg Tab 40 Mg PO HS Sildenafil 20 Mg Tab 20 Mg PO TID B-12 (Cyanocobalamin) 1,000 Mcg Subl 1,000 Mcg SL DAILY Ferrous Sulfate DR (Ferrous Sulfate) 324 Mg Tabdr 324 Mg PO DAILY Pyridostigmine (Pyridostigmine [place]) 60 Mg Tab 60 Mg PO BID Imuran (Azathioprine) 50 Mg Tab 50 Mg PO BID Hazardous agent: use appropriate precautions for handling and disposal. Probenecid 500 Mg Tab 500 Mg PO Q12HR Nexium 24 HR (Esomeprazole DR) 20 Mg Capdr 40 Mg PO BID Synthroid (Levothyroxine Sodium) 75 Mcg Tab 75 Mcg PO DAILY Atenolol 50 Mg Tab 50 Mg PO DAILY Folic Acid 400 Mcg Tab 400 Mcg PO DAILY Aspirin 81 Mg Chew 81 Mg CHEW DAILY Vitamin D3 (Cholecalciferol) 1,000 Unit Tab 1,000 Units PO BID Allergies: Coded Allergies: Aggrenox (Verified Allergy, Severe, Hives, 12/19/16) Ondansetron (Verified Allergy, Severe, DIARRHEA, 12/19/16) Pravastatin (Verified Allergy, Severe, Anaphylaxis, 12/19/16) Ranitidine (Verified Allergy, Severe, DIZZINESS, 12/19/16) Metoclopramide (Verified Allergy, Intermediate, DISORIENTED; VERY NERVOUS , 12/19/16) Uncoded Allergies: DETROL (Allergy, Severe, ., 09/18/15) Social History NS,ND Physical Exam Vital Signs Vital Signs Date Time Temp Pulse Resp B/P Pulse Ox O2 Delivery O2 Flow Rate FiO2 12/24/16 19:16 67 16 142/89 95 Room Air 12/24/16 19:00 96 21 12/24/16 16:18 55 16 97 Room Air 12/24/16 14:32 98.4 58 20 165/80 97 Room Air Physical Exam GENERAL: This is a well-nourished, well-developed patient, in no apparent distress. SKIN: No rashes, ecchymoses or lesions. Cool and dry. HEAD: Atraumatic. Normocephalic. No temporal or scalp tenderness. EYES: Pupils equal round and reactive. Extraocular motions intact. No scleral icterus. No injection or drainage. ENT: Nose without bleeding, purulent drainage or septal hematoma. Throat without erythema, tonsillar hypertrophy or exudate. Uvula midline. Airway patent. NECK: Trachea midline. No JVD or lymphadenopathy. Supple, nontender, no meningeal signs. CARDIOVASCULAR: Regular rate and rhythm without murmurs, gallops, or rubs. RESPIRATORY: Clear to auscultation. Breath sounds equal bilaterally. No wheezes , rales, or rhonchi. GASTROINTESTINAL: Abdomen soft, non-tender, nondistended. No hepato-splenomegaly , or palpable masses. No guarding. MUSCULOSKELETAL: Extremities without clubbing, cyanosis, or edema. No joint tenderness, effusion, or edema noted. No calf tenderness. Negative Homans sign bilaterally. NEUROLOGICAL: Awake and alert. Cranial nerves II through XII intact. Motor and sensory grossly within normal limits. Five out of 5 muscle strength in all muscle groups. Normal speech. Laboratory Laboratory Tests Test 12/24/16 12/24/16 16:47 17:16 Urine Color YELLOW Urine Turbidity CLEAR Urine pH 6.0 Urine Specific [place] 1.010 Urine Protein NEG Urine Glucose (UA) NEG Urine Ketones NEG Urine Occult Blood TRACE Urine Nitrite NEG Urine Bilirubin NEG Urine Urobilinogen LESS THAN 2.0 Urine Leukocyte Esterase NEG Urine RBC 2 Urine WBC LESS THAN 1 Urine Bacteria RARE Urine Mucus FEW Microscopic Urinalysis Comment CULT NOT INDICATED White Blood Count 7.1 Red Blood Count 4.76 Hemoglobin 15.4 Hematocrit 44.3 Mean Corpuscular Volume 93.1 Mean Corpuscular Hemoglobin 32.4 Mean Corpuscular Hemoglobin 34.8 Concent Red Cell Distribution Width 13.3 Platelet Count 167 Mean Platelet Volume 7.8 Neutrophils (%) (Auto) 77.7 Lymphocytes (%) (Auto) 11.5 Monocytes (%) (Auto) 9.0 Eosinophils (%) (Auto) 1.1 Basophils (%) (Auto) 0.7 Neutrophils # (Auto) 5.5 Lymphocytes # (Auto) 0.8 Monocytes # (Auto) 0.6 Eosinophils # (Auto) 0.1 Basophils # (Auto) 0.0 CBC Comment DIFF FINAL Differential Comment Sodium Level 140 Potassium Level 3.8 Chloride Level 107 Carbon Dioxide Level 26.7 Anion Gap 6 Blood Urea Nitrogen 11 Creatinine 0.97 Estimat Glomerular Filtration 76 Rate Random Glucose 93 Calcium Level 9.1 Total Bilirubin 1.1 Aspartate Amino Transf 25 (AST/SGOT) Alanine Aminotransferase 27 (ALT/SGPT) Alkaline Phosphatase 47 Total Protein 6.9 Albumin 3.9 Result Diagram: 12/24/16 1716 12/24/16 1716 Imaging Last 24 hours Impressions Barium Swallow X-Ray 12/24/16 0000 Signed Impressions: Service Date/Time: December 16:53 - CONCLUSION: Normal swallowing without evidence of aspiration or obstruction. Barium pill lodged in the distal esophagus. The pt. reports difficulty in the upper esophagus. Popeye Huddleston MD Assessment and Plan Problem List: (1) Dysphagia Status: Acute Plan: plan as per GI NPO after midnight for endoscopy (2) Enteritis Status: Acute Plan: recent dx in er continue cipro change to IV and change IV protonix (3) Myasthenia gravis Status: Chronic Plan: continue home medications Assessment and Plan further plan as case develops Code Status full Discussed Condition With patient Physician Certification 2 Midnight Certification Type: Admission for Inpatient Services Order for Inpatient Services The services are ordered in accordance with Medicare regulations or non- Medicare payer requirements, as applicable. In the case of services not specified as inpatient-only, they are appropriately provided as inpatient services in accordance with the 2-midnight benchmark. Estimated LOS (days): 2 2 days is the estimated time the patient will need to remain in the hospital, assuming treatment plan goals are met and no additional complications. Post-Hospital Plan: Home Problem Qualifiers (1) Dysphagia: Qualified Code: R13.10 - Dysphagia, unspecified type Daquan Swan MD Dec 24, 2016 20:25
[2016-12-24] MEDS ORDERED: ATORVASTATIN 40 MG TAB PO SCH (21:00)
[2016-12-24] MEDS ORDERED: PANTOPRAZOLE SODIUM 40 MG VIAL IV PUSH SCH (21:00)
[2016-12-24] MEDS: CIPROFLOXACIN 400 MG PREMIX 200 ML IV SCH ×2 (21:00→23:27)
[2016-12-24] MEDS ORDERED: PYRIDOSTIGMINE BROMIDE 60 MG TAB PO SCH (21:00)
[2016-12-24 21:09] VITALS: BP 160/74; PULSE 57; RESP 18; TEMP 97.9; O2SAT 97
[2016-12-24] MEDS: CHOLECALCIFEROL (VIT D3) 1000 UNIT TAB PO SCH (21:45)
[2016-12-24] MEDS: azaTHIOprine 50 MG TAB PO SCH (21:45)
[2016-12-24] MEDS: PROBENECID 500 MG TAB PO SCH (21:45)
[2016-12-24 23:14] VITALS: BP 157/79; PULSE 56; RESP 16; TEMP 97.7; O2SAT 95
[2016-12-24] MEDS: HYOSCYAMINE 0.125 MG TAB PO SCH (23:31)
[2016-12-25 03:41] VITALS: BP 129/61; PULSE 56; RESP 16; TEMP 98.3; O2SAT 96
[2016-12-25] MEDS: HYOSCYAMINE 0.125 MG TAB PO SCH ×2 (05:35→12:00)
[2016-12-25] MEDS ORDERED: LEVOTHYROXINE SODIUM 75 MCG TAB PO SCH (06:00)
[2016-12-25 07:19] VITALS: BP 145/75; PULSE 67; RESP 18; TEMP 97.5; O2SAT 96
[2016-12-25 08:35] VITALS: BP 145/75; PULSE 67; RESP 18; TEMP 97.5; O2SAT 96
[2016-12-25] MEDS ORDERED: FERROUS SULFATE 325 MG (65 MG ELEMENTAL IRON) TAB PO SCH (09:00)
[2016-12-25] MEDS: azaTHIOprine 50 MG TAB PO SCH (09:00)
[2016-12-25] MEDS ORDERED: CYANOCOBALAMIN 1,000 MCG TAB PO SCH (09:00)
[2016-12-25] MEDS ORDERED: FOLIC ACID 1 MG TAB PO SCH (09:00)
[2016-12-25] MEDS: PROBENECID 500 MG TAB PO SCH (09:00)
[2016-12-25] MEDS ORDERED: ASPIRIN 81 MG CHEW TAB CHEW SCH (09:00)
[2016-12-25] MEDS ORDERED: ATENOLOL 50 MG TAB PO SCH (09:00)
[2016-12-25] MEDS ORDERED: POLYETHYLENE GLYCOL 17 GM PKG PO SCH (09:00)
[2016-12-25] MEDS: CHOLECALCIFEROL (VIT D3) 1000 UNIT TAB PO SCH (09:00)
[2016-12-25] MEDS ORDERED: SILDENAFIL CITRATE 20 MG TAB PO SCH (09:00)
--- NOTE | 2016-12-25 09:04 | PD.CONS ---
HPI History of Present Illness This is a 71 year old male who presented to the emergency room after he had a czech corral get lodged in his esophagus. He was recently evaluated by Dr. Sears in the office on December 02, 2016 for pill dysphagia. At that time he reported that he was able to swallow liquids and food as long as he chewed his food well. However he was having a hard time with pills getting caught in his upper esophagus. He also endorsed mild weight loss of 2-4 pounds. He was then evaluated with EGD with dilatation (12/09/16) revealed gastritis of the antrum, duodenitis/superficial ulceration in the duodenum and second portion, retroflex views revealed a small hiatal hernia. Duodenal biopsy with duodenal mucosa showing ulcer, focal neutrophils on surface epithelium and slightly increased chronic inflammation consistent with mild chronic active duodenitis, gastric antral mucosa showing mild chronic inactive gastritis negative for H. pylori. He reports that he did not have much improvement with swallowing pills after this dilatation. He states, he was able to swallow food, but his pills would continue to get caught in his upper esophagus. He denies any heartburn or reflux, n/v, abdominal pain, melena, or hematochezia. Yesterday, he picked up some czech fries on his way home. The first czech corral that he had became lodged in his upper esophagus. He tried to drink water to get this to go down, but the water came back up. He denies any odynophagia with this. He came to the ER for further evaluation and had Barium Swallow X-Ray (12/24/16)----> Normal swallowing without evidence of aspiration or obstruction. Barium pill lodged in the distal esophagus. The pt reports difficulty in the upper esophagus. Of note, he has been recently evaluated by Dr. Sears and CRS for abdominal pain. He had a CT scan abdomen and pelvis (12/20/16)---> atherosclerosis, severe diverticulosis without definite evidence of diverticulitis, small amount of free fluid within the abdomen and pelvis, hepatic steatosis, stable nonobstructing left renal calculi, abnormal inflammatory changes involving the jejunum with hyperemia, bowel wall thickening , and mesenteric stranding identified. A discrete transition point is not visualized. Outpatient PET scan is pending. Colonoscopy (09/09/16) revealed pandiverticulosis, mostly left colon with diminutive polyp in the descending, status post cold biopsy with complete removal, retroflex views revealed internal grade 1 hemorrhoids, digital rectal exam was performed and revealed small external hemorrhoids. Pathology revealed hyperplastic polyp. He is not currently having the abdominal pain. (Shania Carlton Lakshmi CANTOR) PFSH Past Medical History Atheroslcerosis B12 deficiency BPH COPD Chronic kidney disease Coronary artery disease DDD Gastroparesis Diverticulosis Enteritis GERD Hiatal hernia Hypertension Hyperlipidemia Hypothyroidism Myasthenia gravis Vitamin D deficiency History of diverticulitis History of H. pylori Past Surgical History Appendectomy Capsule endoscopy Colonoscopy EGD with dilatation Cataract surgery PTCA Shoulder surgery TURP Ventral hernia repair (CarltonShania) Coded Allergies: Aggrenox (Verified Allergy, Severe, Hives, 12/19/16) Pravastatin (Verified Allergy, Severe, Anaphylaxis, 12/19/16) Ranitidine (Verified Allergy, Severe, DIZZINESS, 12/19/16) Metoclopramide (Verified Allergy, Intermediate, DISORIENTED; VERY NERVOUS , 12/19/16) Uncoded Allergies: DETROL (Allergy, Severe, ., 09/18/15) Medications Allergies Coded Allergies Type Severity Reaction Last Updated Verified Aggrenox Allergy Severe Hives 12/19/16 Yes Pravastatin Allergy Severe Anaphylaxis 12/19/16 Yes Ranitidine Allergy Severe DIZZINESS 12/19/16 Yes Metoclopramide Allergy Intermediate DISORIENTED; VERY NERVOUS 12/19/16 Yes Uncoded Allergies Type Severity Reaction Last Updated Verified DETROL Allergy Severe . 09/18/15 Active Scripts Medications Dose Route/Sig Days Date Category Dose Instructions Lortab (Hydrocodone-Acetaminophen) 5-325 Mg Tab 1-2 Tab PO Q6H PRN 12/20/16 Rx Ciprofloxacin (Ciprofloxacin HCl) 500 Mg Tab 500 Mg PO BID 11/24/16 Rx Hyoscyamine (Hyoscyamine Sulfate) 0.125 Mg Tab 0.125 Mg PO Q6H 11/23/16 Reported Miralax Powder (Polyethylene Glycol 3350 Powder) 17 Gm Powd 17 Gm PO DAILY 11/23/16 Reported Mix and dissolve one measuring cap-ful (17 grams) in water or juice. Ondansetron Odt 4 Mg Tab 4 Mg SL Q12HR PRN 11/23/16 Reported Atorvastatin (Atorvastatin Calcium) 40 Mg Tab 40 Mg PO HS 11/23/16 Reported Sildenafil 20 Mg Tab 20 Mg PO TID 11/23/16 Reported B-12 (Cyanocobalamin) 1,000 Mcg Subl 1,000 Mcg SL DAILY 11/23/[address] (Ferrous Sulfate) 324 Mg Tabdr 324 Mg PO DAILY 11/23/16 Reported Pyridostigmine (Pyridostigmine [place]) 60 Mg Tab 60 Mg PO BID 07/11/16 Reported Imuran (Azathioprine) 50 Mg Tab 50 Mg PO BID 07/11/16 Reported Hazardous agent: use appropriate precautions for handling and disposal. Probenecid 500 Mg Tab 500 Mg PO Q12HR 07/11/16 Reported Nexium 24 HR (Esomeprazole DR) 20 Mg Capdr 40 Mg PO BID 07/11/16 Reported Synthroid (Levothyroxine Sodium) 75 Mcg Tab 75 Mcg PO DAILY 07/11/16 Reported Atenolol 50 Mg Tab 50 Mg PO DAILY 07/11/16 Reported Folic Acid 400 Mcg Tab 400 Mcg PO DAILY 07/11/16 Reported Aspirin 81 Mg Chew 81 Mg CHEW DAILY 07/11/16 Reported Vitamin D3 (Cholecalciferol) 1,000 Unit Tab 1,000 Units PO BID 07/11/16 Reported Family History Mother had asthma and hypertension Father had cardiac disease Maternal aunts and maternal uncle with NH Social History No use of alcohol, tobacco, or illicit drug use (Shania Carlton) Review of Systems Constitutional: COMPLAINS OF: Fatigue, Weight loss, DENIES: Fever, Chills Respiratory: DENIES: Cough Cardiovascular: DENIES: Chest pain Gastrointestinal: COMPLAINS OF: Difficulty Swallowing, DENIES: Abdominal pain , Black stools, Bloody stools, Constipation, Diarrhea, Nausea, Vomiting, Swelling of Abdomen, Heartburn, Hematemesis Musculoskeletal: COMPLAINS OF: Joint pain Integumentary: DENIES: Rash Hematologic/lymphatic: DENIES: Bruising Neurologic: DENIES: Headache Psychiatric: DENIES: Confusion (Shania Carlton) GI Exam Vitals I&O Vital Signs Date Time Temp Pulse Resp B/P Pulse Ox O2 Delivery O2 Flow Rate FiO2 12/25/16 07:19 97.5 67 18 145/75 96 12/25/16 03:41 98.3 56 16 129/61 96 12/24/16 23:14 97.7 56 16 157/79 95 12/24/16 21:09 97.9 57 18 160/74 97 12/24/16 19:16 67 16 142/89 95 Room Air 12/24/16 19:00 96 21 12/24/16 16:18 55 16 97 Room Air 12/24/16 14:32 98.4 58 20 165/80 97 Room Air Imaging Last Impressions Barium Swallow X-Ray 12/24/16 0000 Signed Impressions: Service Date/Time: December 16:53 - CONCLUSION: Normal swallowing without evidence of aspiration or obstruction. Barium pill lodged in the distal esophagus. The pt. reports difficulty in the upper esophagus. Popeye Huddleston MD Laboratory Test 12/24/16 12/24/16 16:47 17:16 Urine Color YELLOW Urine Turbidity CLEAR Urine pH 6.0 Urine Specific [place] 1.010 Urine Protein NEG mg/dL Urine Glucose (UA) NEG mg/dL Urine Ketones NEG mg/dL Urine Occult Blood TRACE Urine Nitrite NEG Urine Bilirubin NEG Urine Urobilinogen LESS THAN 2.0 MG/DL Urine Leukocyte Esterase NEG Urine RBC 2 /hpf Urine WBC LESS THAN 1 /hpf Urine Bacteria RARE /hpf Urine Mucus FEW /lpf Microscopic Urinalysis Comment CULT NOT INDICATED White Blood Count 7.1 TH/MM3 Red Blood Count 4.76 MIL/MM3 Hemoglobin 15.4 GM/DL Hematocrit 44.3 % Mean Corpuscular Volume 93.1 FL Mean Corpuscular Hemoglobin 32.4 PG Mean Corpuscular Hemoglobin 34.8 % Concent Red Cell Distribution Width 13.3 % Platelet Count 167 TH/MM3 Mean Platelet Volume 7.8 FL Neutrophils (%) (Auto) 77.7 % Lymphocytes (%) (Auto) 11.5 % Monocytes (%) (Auto) 9.0 % Eosinophils (%) (Auto) 1.1 % Basophils (%) (Auto) 0.7 % Neutrophils # (Auto) 5.5 TH/MM3 Lymphocytes # (Auto) 0.8 TH/MM3 Monocytes # (Auto) 0.6 TH/MM3 Eosinophils # (Auto) 0.1 TH/MM3 Basophils # (Auto) 0.0 TH/MM3 CBC Comment DIFF FINAL Differential Comment Sodium Level 140 MEQ/L Potassium Level 3.8 MEQ/L Chloride Level 107 MEQ/L Carbon Dioxide Level 26.7 MEQ/L Anion Gap 6 MEQ/L Blood Urea Nitrogen 11 MG/DL Creatinine 0.97 MG/DL Estimat Glomerular Filtration 76 ML/MIN Rate Random Glucose 93 MG/DL Calcium Level 9.1 MG/DL Total Bilirubin 1.1 MG/DL Aspartate Amino Transf 25 U/L (AST/SGOT) Alanine Aminotransferase 27 U/L (ALT/SGPT) Alkaline Phosphatase 47 U/L Total Protein 6.9 GM/DL Albumin 3.9 GM/DL Physical Examination HEENT: Normocephalic; atraumatic; no jaundice. CHEST: CTA CARDIAC: RRR ABDOMEN: Soft, nondistended, nontender; no hepatosplenomegaly; bowel sounds are present in all four quadrants. EXTREMITIES: No clubbing, cyanosis, or edema. SKIN: Normal; no rash; no jaundice. BREAKFAST COOK: No focal deficits; alert and oriented times three. (Shania Carlton) Assessment and Plan Plan ASSESSMENT: - Dysphagia with foreign body in esophagus. Pt reports that he has been tolerating foods, but having difficulty swallowing pills. S/P recent EGD with dilatation (12/09/16) revealed gastritis of the antrum, duodenitis/ superficial ulceration in the duodenum and second portion, retroflex views revealed a small hiatal hernia. Duodenal biopsy with duodenal mucosa showing ulcer, focal neutrophils on surface epithelium and slightly increased chronic inflammation consistent with mild chronic active duodenitis , gastric antral mucosa showing mild chronic inactive gastritis negative for H. pylori. He reports that he did not have much improvement with swallowing pills after this dilatation. Yesterday, he had a czech corrla become lodged in his esophagus (upper) and was not able to bring this up or pass it. Barium Swallow X-Ray (12/24/16)----> Normal swallowing without evidence of aspiration or obstruction. Barium pill lodged in the distal esophagus. NPO. Plan for egd with foreign body removal today. PPI. - Recent dx of enteritis. CT scan abdomen and pelvis (12/20/16)---> atherosclerosis, severe diverticulosis without definite evidence of diverticulitis, small amount of free fluid within the abdomen and pelvis, hepatic steatosis, stable nonobstructing left renal calculi, abnormal inflammatory changes involving the jejunum with hyperemia, bowel wall thickening, and mesenteric stranding identified. A discrete transition point is not visualized. Outpatient PET scan is pending. Colonoscopy (09/09/16) revealed pandiverticulosis, mostly left colon with diminutive polyp in the descending, status post cold biopsy with complete removal, retroflex views revealed internal grade 1 hemorrhoids , digital rectal exam was performed and revealed small external hemorrhoids. Pathology revealed hyperplastic polyp. He is not currently having the abdominal pain.Cipro - Myasthenia gravis. Pyridostigmine - CAD, Hyperlipidemia, CVA, DM per attending. PLAN: - Plan for EGD with foreign body removal, possible dilatation - Obtain consents - NPO - PPI - Monitor labs - Supportive care - Further recommendations to follow based on results of above - Pt seen and examined by Dr. Sears and myself and this note is written on her behalf (Shania Carlton) Physician Comments seen, examined agree with above (Breanna Sears MD) Shania Carlton Dec 25, 2016 09:03 Breanna Sears MD Dec 25, 2016 20:51
--- NOTE | 2016-12-25 09:15 | HHI.PR ---
Subjective Remarks Pt c/o ongoing problems with swallowing pills and prior to admission had icelandic corral stuck. barium swallow showed pill stuck in esophagus. has been seeing dr Sears in clinic Objective Vitals heart reg lung cta abd s/nt ext no edema Vital Signs Date Time Temp Pulse Resp B/P Pulse Ox O2 Delivery O2 Flow Rate FiO2 12/25/16 08:35 97.5 67 18 145/75 96 12/25/16 07:19 97.5 67 18 145/75 96 12/25/16 03:41 98.3 56 16 129/61 96 12/24/16 23:14 97.7 56 16 157/79 95 12/24/16 21:09 97.9 57 18 160/74 97 12/24/16 19:16 67 16 142/89 95 Room Air 12/24/16 19:00 96 21 12/24/16 16:18 55 16 97 Room Air 12/24/16 14:32 98.4 58 20 165/80 97 Room Air Result Diagram: 12/24/16 1716 12/24/16 1716 Imaging Last 24 hours Impressions Barium Swallow X-Ray 12/24/16 0000 Signed Impressions: Service Date/Time: December 16:53 - CONCLUSION: Normal swallowing without evidence of aspiration or obstruction. Barium pill lodged in the distal esophagus. The pt. reports difficulty in the upper esophagus. Popeye Huddleston MD A/P Problem List: (1) Dysphagia Status: Acute Plan: Pt has Myasthenia gravis and on imuran/mestinon/prednisone has been undergoing outpt eval by Dr Sears for dysphagia s/p egd/dilation going for egd and removal of foreign body(pill) manometry today with GI d/c when ok with GI and f/u. He has been crushing pills to swallow them. (2) Myasthenia gravis Status: Chronic Plan: home meds (3) Hypothyroid Status: Chronic (4) HTN (hypertension) Status: Chronic (5) CAD (coronary artery disease) Status: Chronic (6) Gout Status: Chronic Problem Qualifiers (1) Dysphagia: Qualified Code: R13.10 - Dysphagia, unspecified type Prem Cosby MD Dec 25, 2016 09:15
[2016-12-25] MEDS ORDERED: PROPOFOL 200 MG/20 ML AMP IV ONE (10:00)
--- NOTE | 2016-12-25 10:33 | GIPROC ---
[facility] [address] [facility]. [facility], [id number] EGD WITH DILATION PROCEDURE REPORT EXAM DATE: 12/25/2016 PATIENT NAME: Ahsan Metz MR#: [id number] BIRTHDATE: 1945 ATTENDING: Breanna Sears MD ORDER #: [id number] IMPREGNATING HELPER: Delores Key and Dante Reardon STATUS: inpatient INDICATIONS: The patient is a 71 yr old male here for an EGD with dilation due to dysphagia, abnormal ba swallow PROCEDURE PERFORMED: EGD w/ biopsy EGD w/ dilation of esophagus via guidewire MEDICATIONS: None and Per Anesthesia. TOPICAL ANESTHETIC: none CONSENT: The patient understands the risks and benefits of the procedure and understands that these risks include, but are not limited to: sedation, allergic reaction, infection, perforation and/or bleeding. Alternative means of evaluation and treatment include, among others: physical exam, x-rays, and/or surgical intervention. The patient elects to proceed with this endoscopic procedure. medical equipment was checked for proper function. Hand hygiene and appropriate measures for infection prevention was taken. After the risks, benefits and alternatives of the procedure were thoroughly explained, Informed consent was verified, confirmed and timeout was successfully executed by the treatment team. The patient was anesthetized with topical anesthesia and the Pentax EG-[id number] endoscope was introduced through the mouth and advanced to the second portion of the duodenum. The instrument was slowly withdrawn as the mucosa was fully examined. Duodenitis second portion-biopsy esophagitis distal esophagus-biopsy biopsy midesophagus to r/o eosinophilic esophagitis dilatation of ge junction Manometry probe inserted under direct visualisation. Dilation was performed at gastroesophageal junction. DILATOR: SIZE(S): RESISTANCE: HEME: APPEARANCE: Dilator: Savary over guidewire Size(s): 17 COMMENT: Retroflexed views revealed a hiatal hernia ADVERSE EVENTS: There were no complications. IMPRESSIONS: 1. Duodenitis second portion-biopsy esophagitis distal esophagus-biopsy biopsy midesophagus to r/o eosinophilic esophagitis dilatation of ge junction Manometry probe inserted under direct visualisation 2. Retroflexed views revealed a hiatal hernia RECOMMENDATIONS: 1. Await biopsy results. Biopsy results will not be ready for 7-10 days. If you don't hear from us in two weeks, call our office for biopsy results. 2. Anti-reflux regimen 3. Continue PPI 4. Esophageal manometry ok to dc home from gi point today gi office 2 weeks soft diet REPEAT EXAM: EGD pending biopsy results Breanna Sears MD eSigned: Breanna Sears MD 12/25/2016 10:33 AM cc: PATIENT NAME: Ahsan Metz MR#: [id number]
[2016-12-25] MEDS ORDERED: PYRIDOSTIGMINE BROMIDE 60 MG TAB PO SCH ×2 (11:00→16:00)
[2016-12-25] MEDS ORDERED: PILL SPLITTER OTHER PRN (11:15)
[2016-12-25] MEDS: CIPROFLOXACIN 400 MG PREMIX 200 ML IV SCH (12:18)
[2016-12-25 12:59] VITALS: BP 138/70; PULSE 66; RESP 17; TEMP 98.1; O2SAT 97
== END 2016-12-25 17:34 | disposition home or self-care (01) ==
LOC: NEPE 14:30 → NEDA 18:20 → NEPGCP 20:50
PROVIDERS: ADMIT Hospitalist; ATTEND Hospitalist
DX: R13.10 Dysphagia, unspecified (principal); T18.108A Unspecified foreign body in esophagus causing other injury, initial encounter; K52.9 Noninfective gastroenteritis and colitis, unspecified; K21.9 Gastro-esophageal reflux disease without esophagitis; M25.50 Pain in unspecified joint; R63.4 Abnormal weight loss; N20.0 Calculus of kidney; I25.10 Atherosclerotic heart disease of native coronary artery without angina pectoris; I12.9 Hypertensive chronic kidney disease with stage 1 through stage 4 chronic kidney disease, or unspecified chronic kidney disease; N18.9 Chronic kidney disease, unspecified; E78.5 Hyperlipidemia, unspecified; E78.00 Pure hypercholesterolemia, unspecified; G70.00 Myasthenia gravis without (acute) exacerbation; E11.43 Type 2 diabetes mellitus with diabetic autonomic (poly)neuropathy; E11.22 Type 2 diabetes mellitus with diabetic chronic kidney disease; E03.9 Hypothyroidism, unspecified; K26.9 Duodenal ulcer, unspecified as acute or chronic, without hemorrhage or perforation; K29.80 Duodenitis without bleeding; K44.9 Diaphragmatic hernia without obstruction or gangrene; K29.50 Unspecified chronic gastritis without bleeding; K20.9 Esophagitis, unspecified; K57.90 Diverticulosis of intestine, part unspecified, without perforation or abscess without bleeding; K76.0 Fatty (change of) liver, not elsewhere classified; J44.9 Chronic obstructive pulmonary disease, unspecified; K31.84 Gastroparesis; N40.0 Benign prostatic hyperplasia without lower urinary tract symptoms; Z95.5 Presence of coronary angioplasty implant and graft; Z86.73 Personal history of transient ischemic attack (TIA), and cerebral infarction without residual deficits; Z79.899 Other long term (current) drug therapy; Z79.82 Long term (current) use of aspirin
CPT/HCPCS: 00740; 43239; 43248; 74230; 80053; 81001; 85025; 88305; 94150; 99285; C1769; C9113; G0378; J0744

== ENCOUNTER 2017-09-25 09:13 | Emergency (ER) | payer MEDICARE ==
[~2017-09-25] VITALS: Ht 172.7 cm; Wt 78.0 kg
[~2017-09-25 09:13] MED LIST changes: +ASPI-516 CHEW; -ASPI81CH CHEW; -HYOS0.128 PO; +HYOS1TAB9 PO; -IMUR50TA PO; +IMUR50TA5 PO; -METR-1 PO; -SILD20TA11 PO
[2017-09-25 09:16] VITALS: BP 129/68; PULSE 87; RESP 17; TEMP 98.3; O2SAT 96
[2017-09-25] MEDS ORDERED: GABA100C4 PO (09:39)
[2017-09-25] MEDS ORDERED: VALT1TAB PO (09:39)
--- NOTE | 2017-09-25 09:57 | PD ---
HPI Chief Complaint: Skin Problem Time Seen by Provider: 09:22 Travel History International Travel<30 days: No Contact w/Intl Traveler<30days: No Traveled to known affect area: No History of Present Illness HPI 72-year-old male presents emergency department with worsening rash to the right buttocks and genitalia. He states it started in front week ago and has progressed. He was seen by urgent care earlier this week and given Keflex and ketoconazole and triamcinolone ointment without improvement. Patient states the rash is spreading and is more painful. Patient has history of myasthenia gravis, but has no other acute complaints. He is allergic to Detrol , aspirin, metoclopramide, pravastatin, ranitidine PFSH Past Medical History Hx Anticoagulant Therapy: Yes (ASPIRIN) Asthma: No Autoimmune Disease: No Blood Disorders: No Anxiety: No Depression: No Heart Rhythm Problems: No Cancer: No Cardiac Catheterization: Yes Cardiovascular Problems: Yes (STENTS) High Cholesterol: Yes Chemotherapy: No Chest Pain: Yes (ischemic heart disease) Congestive Heart Failure: No COPD: No Cerebrovascular Accident: Yes (2011) Diabetes: Yes (DIET CONTROL) Diminished Hearing: No Diverticulitis: Yes Endocrine: Yes (MYASTHENIA GRAVIS) Gastrointestinal Disorders: Yes (reflux,diverticulosis/DIVERTICULITIS) GERD: Yes Gout: Yes Genitourinary: Yes (hx of turp) Hepatitis: No Hiatal Hernia: No Hypertension: Yes Immune Disorder: No Kidney Stones: Yes Musculoskeletal: No Neurologic: Yes (myanthesis gravis ) Psychiatric: No Reproductive: No Respiratory: No Immunizations Current: Yes Migraines: No Radiation Therapy: No Renal Failure: No Seizures: No Sleep Apnea: No Thyroid Disease: Yes Ulcer: No PNEUMOCCOCAL Vaccine (Year): 1 Past Surgical History Abdominal Surgery: Yes (hernia repair) Cardiac Surgery: Yes (stents x2) Coronary Stent: Yes (MAR 2012) Ear Surgery: No Endocrine Surgery: No Eye Surgery: Yes (bilat. cataracts with lens implants) Genitourinary Surgery: No Gynecologic Surgery: No Oral Surgery: Yes (ESOPHAGEAL STRETCHING) Pacemaker: No Thoracic Surgery: No Other Surgery: Yes (turp 08/2013) Social History Alcohol Use: No Tobacco Use: No Substance Use: No Allergies-Medications (Allergen,Severity, Reaction): Coded Allergies: aspirin (Unverified Allergy, Severe, Hives, 09/25/17) dipyridamole (Unverified Allergy, Severe, Hives, 09/25/17) pravastatin (Unverified Allergy, Severe, Anaphylaxis, 09/25/17) ranitidine (Unverified Allergy, Severe, DIZZINESS, 09/25/17) metoclopramide (Unverified Allergy, Intermediate, DISORIENTED; VERY NERVOUS, 09/25/17) Uncoded Allergies: DETROL (Allergy, Severe, ., 09/18/15) Reported Meds & Prescriptions Reported Meds & Active Scripts Active Gabapentin 100 Mg Cap 100 Mg PO TID Valtrex (Valacyclovir HCl) 1,000 Mg Tab 1,000 Mg PO TID 7 Days Lortab (Hydrocodone-Acetaminophen) 5-325 Mg Tab 1-2 Tab PO Q6H PRN Ciprofloxacin (Ciprofloxacin HCl) 500 Mg Tab 500 Mg PO BID Reported Hyoscyamine (Hyoscyamine Sulfate) 0.125 Mg Tab 0.125 Mg PO Q6H Miralax Powder (Polyethylene Glycol 3350 Powder) 17 Gm Powd 17 Gm PO DAILY Mix and dissolve one measuring cap-ful (17 grams) in water or juice. Ondansetron Odt 4 Mg Tab 4 Mg SL Q12HR PRN Atorvastatin (Atorvastatin Calcium) 40 Mg Tab 40 Mg PO HS B-12 (Cyanocobalamin) 1,000 Mcg Subl 1,000 Mcg SL DAILY Ferrous Sulfate DR (Ferrous Sulfate) 324 Mg Tabdr 324 Mg PO DAILY Pyridostigmine (Pyridostigmine [place]) 60 Mg Tab 60 Mg PO BID Imuran (Azathioprine) 50 Mg Tab 50 Mg PO BID Hazardous agent: use appropriate precautions for handling and disposal. Probenecid 500 Mg Tab 500 Mg PO Q12HR Nexium 24 HR (Esomeprazole DR) 20 Mg Capdr 40 Mg PO BID Synthroid (Levothyroxine Sodium) 75 Mcg Tab 75 Mcg PO DAILY Atenolol 50 Mg Tab 50 Mg PO DAILY Folic Acid 400 Mcg Tab 400 Mcg PO DAILY Aspirin 81 Mg Chew 81 Mg CHEW DAILY Vitamin D3 (Cholecalciferol) 1,000 Unit Tab 1,000 Units PO BID Review of Systems Except as stated in HPI: all other systems reviewed are Neg General / Constitutional: No: Fever Eyes: No: Visual changes HENT: No: Headaches Cardiovascular: No: Chest Pain or Discomfort Respiratory: No: Shortness of Breath Gastrointestinal: No: Abdominal Pain Genitourinary: No: Dysuria Musculoskeletal: No: Pain Skin: Positive Rash, Positive Lesions (See history of present illness per) Neurologic: No: Weakness Psychiatric: No: Depression Endocrine: No: Polydipsia Hematologic/Lymphatic: No: Easy Bruising Physical Exam Narrative GENERAL: Patient appears in no obvious distress. SKIN: Warm and dry. Normal color. Normal turgor. Patient has obvious right- sided shingles along the right medial buttock and inner upper thigh and scrotum consistent with shingles. HEAD: Atraumatic. Normocephalic. EYES: Pupils equal and round. No scleral icterus. No injection or drainage. ENT: No nasal bleeding or discharge. Mucous membranes pink and moist. Pharynx is clear. Airways patent. NECK: Trachea midline. Supple and nontender CARDIOVASCULAR: Regular rate and rhythm. RESPIRATORY: No accessory muscle use. Clear to auscultation. Breath sounds equal bilaterally. MUSCULOSKELETAL: Extremities without clubbing, cyanosis, or edema. No obvious deformities. NEUROLOGICAL: Awake and alert. No obvious cranial nerve deficits. Motor grossly within normal limits. Five out of 5 muscle strength in the arms and legs. Normal speech. PSYCHIATRIC: Appropriate mood and affect; insight and judgment normal. Data Data Last Documented VS Vital Signs Date Time Temp Pulse Resp B/P (MAP) Pulse Ox O2 Delivery O2 Flow Rate FiO2 09/25/17 09:16 98.3 87 17 129/68 (88) 96 MDM Medical Decision Making Medical Screen Exam Complete: Yes Emergency Medical Condition: Yes Differential Diagnosis Rash. Shingles. Dermatitis. Narrative Course Patient is medically stable at time of exam. Patient is treated with Valtrex 1000 mg 3 times daily 7 days. Patient started on gabapentin 100 mg 3 times daily #90. Patient can take extra strength Tylenol every 6 hours as needed for pain Recommend topical Caladryl lotion to the rash. Recommend follow-up with his primary care physician to ensure clearance in the next week Diagnosis Primary Impression: Shingles outbreak Qualified Codes: B02.9 - Zoster without complications Referrals: Primary Care Physician Patient Instructions: General Instructions, Shingles (ED), Shingles Vaccine (ED ) Additional Instructions: Patient is treated with Valtrex 1000 mg 3 times daily 7 days. Patient started on gabapentin 100 mg 3 times daily #90. Patient can take extra strength Tylenol every 6 hours as needed for pain Recommend topical Caladryl lotion to the rash. Recommend follow-up with his primary care physician to ensure clearance in the next week Med/Other Pt SpecificInfo: Prescription(s) given Scripts Gabapentin (Gabapentin) 100 Mg Cap 100 MG PO TID, #90 CAP 0 Refills Prov: Simran Lugo MD 09/25/17 Valacyclovir (Valtrex) 1,000 Mg Tab 1000 MG PO TID for Mgmt Viral Infection for 7 Days, #21 TAB 0 Refills Prov: Simran Lugo MD 09/25/17 Disposition: 01 DISCHARGE HOME Condition: Stable Vern Reyes Sep 25, 2017 09:57
== END 2017-09-25 10:33 | disposition home or self-care (01) ==
LOC: NEPD 09:13
DX: B02.9 Zoster without complications (principal); G70.00 Myasthenia gravis without (acute) exacerbation; E78.00 Pure hypercholesterolemia, unspecified; I25.9 Chronic ischemic heart disease, unspecified; E11.9 Type 2 diabetes mellitus without complications; K21.9 Gastro-esophageal reflux disease without esophagitis; I10 Essential (primary) hypertension; Z87.442 Personal history of urinary calculi; Z95.5 Presence of coronary angioplasty implant and graft
CPT/HCPCS: 99283